=== PATIENT | male | born 1955 | race Caucasian/White ===

== ENCOUNTER 2020-05-15 13:01 | Inpatient (IN) | payer MEDICARE, OTHER ==
[~2020-05-15 13:01] MED LIST: Iopamidol-370 76% 500 ML 1 ML ONE
[2020-05-15] MEDS ORDERED: Morphine 4 MG/ML VIAL ONE (13:39)
[2020-05-15] MEDS ORDERED: Cefepime 2 GM VIAL ONE (13:39)
[2020-05-15] MEDS ORDERED: Ondansetron PF 4 MG/2 ML Vial ONE (13:39)
[2020-05-15] MEDS ORDERED: Acetaminophen 325 MG TAB ONE (13:39)
[2020-05-15 13:46] LABS: Hemoglobin 12.4 g/dL (14.0-18.0); Mean Corpuscular HGB CONC 32.8 g/dL (32.0-36.0); Mean Corpuscular Hemoglobin 29.4 pg (27.0-31.0); Mean Corpuscular Volume 89.5 fL (78.0-98.0); Mean Platelet Volume 7.9 fL (7.4-10.4); Platelet Count 436 thou/uL (130-400); RBC Distribution Width 12.7 % (11.5-14.5); Red Blood Cell (RBC) Count 4.23 mill/uL (4.70-6.10); White Blood Cell (WBC) Count 26.5 thou/uL (4.8-10.8)
[2020-05-15 14:00] LABS: Base Excess-Venous 1.5 mmol/L (-2.0 to 3.0); Bicarbonate (HCO3v) 26.5 mmol/L (22.0-28.0); CO2 Tension (PvCO2) 41.9 mmHg (40.0-50.0); Calcium, Ionized 1.02 mmol/L (1.15-1.33); Chloride 97 mmol/L (98-107); Hemoglobin - Calc 14.1 g/dL (14.0-18.0); Sodium 134 mmol/L (138-145); T. Carbon Dioxide 27.8 mmol/L (22.0-28.0); vO2 Saturation-calc 91.5 % (60.0-85.0)
[2020-05-15 14:07] LABS: ALT (SGPT) 14 U/L (8-55); AST (SGOT) 19 U/L (5-34); Albumin 3.6 g/dL (3.4-4.8); Alkaline Phosphatase 66 U/L (40-110); Anion Gap 16 mmol/L (10-20); BUN (Urea Nitrogen) 20 mg/dL (8.4-25.7); Bilirubin, Total 0.5 mg/dL (0.2-1.2); Calc. Creatinine Clearance 0 mL/min (70-130); Calcium 8.6 mg/dL (7.8-10.44); Carbon Dioxide 24 mmol/L (23-31); Chloride 98 mmol/L (98-107); Estimated GFR-MDRD 68; Globulin 3.9 g/dL (2.4-3.5); Glucose 125 mg/dL (80-115); Potassium 3.9 mmol/L (3.5-5.1); Protein, Total 7.5 g/dL (5.8-8.1); Sodium 134 mmol/L (136-145)
[2020-05-15 14:22] LABS: Band 36 % (5-11); Lymphocytes 6 % (21-51); MDiff Complete? YES; Monocytes 7 % (0-10); Neutrophil 50 % (42-75); Platelet Morphology Comment Appears Increased; Polychromasia SLIGHT = 2-3 cells (100X) (0-2/hpf); Reactive Lymphocytes 1 % (0-10); Target Cells SLIGHT = 2-5 cells (100X) (0-1/hpf)
--- NOTE | 2020-05-15 14:32 | ULT ---
EXAM: Left lower extremity venous Doppler US HISTORY: left lower extremity edema, erythema and pain FINDINGS: Grayscale, color-flow, Doppler evaluation, spectral analysis of the left lower extremity venous struc tures is performed with 2-D imaging. The left common femoral, superficial femoral, popliteal, posterior tibial, proximal greater saphenous and profunda femoral veins are imaged. There is normal luminal compressibility, flow, and augmentation the visualized deep venous structures of the left lower extremity. Several prominent lymph nodes are seen in the left groin. IMPRESSION: No evidence of a deep vein thrombosis in the left lower extremity.
--- NOTE | 2020-05-15 17:15 | CT ---
CT OF LEFT TIBIA AND FIBULA PERFORMED WITH INTRAVENOUS CONTRAST ENHANCEMENT: 05/15/20 HISTORY: Left lower leg swelling and redness and pain. Two chronic scab wounds to anterior ng. Increasing re dness. The patient is a diabetic. This examination extended from a level just below the knee to include the foot. There are cellulitis changes present. There is no air seen within the soft tissue and there does not appear to be any obvi ous muscle involvement. I do not see any signs that would suggest any type of compartment syndrome. Old posttraumatic changes to the interosseous ligament distally is seen. I see no evidence of osteomy elitis. Arthritic change of the ankle joint is present. IMPRESSION: Cellulitis changes. No abscess collection or air identified within the soft tissues. POS: ARIANNA
[2020-05-15 18:13] LABS: INR-International Normal Ratio 1.3; PTT 41.2 sec (22.9-36.1); Prothrombin Time 15.9 sec (12.0-14.7)
[2020-05-15 18:25] LABS: CRP (Inflammatory) 20.44 mg/dL (= or < 0.5); Magnesium 1.6 mg/dL (1.6-2.6)
--- NOTE | 2020-05-15 21:27 | PDOC.HHP ---
Hospitalist HPI - History of Present Illness Left leg swelling History of Present Illness: Patient is a 64-year-old male with diabetes mellitus type 2, hypertension and chronic left leg ulcer presented to the emergency room with worsening left leg swelling along with significant pain. Patient initially started having swelling in the left leg over the last 1 to 2 weeks. 3 days ago he noticed some erythema around the ulcers on his left ng that progressively got worse. Overnight his whole leg was red with tenderness and warmth. He had moderate to severe pain especially on ambulation. He also had some distal discomfort in the left groin. He felt generally weak and fatigue. No dysuria, hematuria, altered mentation, nausea, vomiting, cough, shortness of breath or wheezing reported. In the emergency room, his vital signs show temperature 98.3 with respiration of 16 pulse rate of 80 blood pressure of 122/71 with O2 saturation 95% on room air. He received vancomycin, cefepime with morphine and IV fluids in the emergency room. PAST MEDICAL HISTORY: Hypertension, diabetes mellitus type 2, hyperlipidemia, umbilical hernia, chronic left leg ulcers PAST SURGICAL HISTORY: Bilateral cataract surgery, splenectomy ALLERGIES: No known drug allergies SOCIAL HISTORY: Currently lives at home with his family. Smokes 1 pack a day for more than 30 years. Denies any alcohol or drug use. Makes his own decision with the help of his family. He is full code. FAMILY HISTORY: Negative for premature coronary artery disease Hospitalist ROS - Review of Systems Respiratory: denies: cough, dry, shortness of breath, hemoptysis, SOB with excertion, pleuritic pain, sputum, wheezing, other Cardiovascular: denies: chest pain, palpitations, orthopnea, paroxysmal noc. dyspnea, edema, light headedness, other All other systems reviewed; all pertinent +/- noted in HPI/Subj - Medication Medications: Amlodipine, lisinoprilHCTZ, metformin and Lipitor. Dosages to be verified - Exam General Appearance: ill appearing Eye: PERRL, anicteric sclera ENT: normocephalic atraumatic, no oropharyngeal lesions, moist mucosa Neck: supple, symmetric, no JVD, no thyromegaly Heart: RRR, no gallops, no rubs, normal peripheral pulses Respiratory: no wheezes, no rales, no ronchi, normal chest expansion Gastrointestinal: soft, normal bowel sounds, no guarding, no rigidity Gastrointestinal - other findings: Obese Extremities: no cyanosis, no clubbing, 2+ LE edema Extremities - other findings: Significant erythema with tenderness in left leg. Skin: normal turgor Skin - other findings: Chronic ulcer over the left ng Neurological: cranial nerve grossly intact, normal sensation to touch, no weakness, no focal deficits Musculoskeletal: normal tone, normal strength, no muscle wasting Psychiatric: normal affect, A&O x 3, oriented to person Hospitalist Results - Labs Result Diagrams: 05/15/20 13:36 05/15/20 13:36 Lab results: WBC 26.5 thou/uL (4.8-10.8) H 05/15/20 13:36 Hgb 12.4 g/dL (14.0-18.0) L 05/15/20 13:36 Hct 37.8 % (42.0-52.0) L 05/15/20 13:36 MCV 89.5 fL (78.0-98.0) 05/15/20 13:36 Plt Count 436 thou/uL (130-400) H 05/15/20 13:36 Band Neuts % (Manual) 36 % (5-11) H 05/15/20 13:36 VBG pCO2 41.9 mmHg (40.0-50.0) 05/15/20 13:41 VBG pO2 61.9 mmHg (35.0-45.0) H 05/15/20 13:41 Sodium 134 mmol/L (136-145) L 05/15/20 13:36 Potassium 3.9 mmol/L (3.5-5.1) 05/15/20 13:36 Chloride 98 mmol/L (98-107) 05/15/20 13:36 Carbon Dioxide 24 mmol/L (23-31) 05/15/20 13:36 BUN 20 mg/dL (8.4-25.7) 05/15/20 13:36 Creatinine 1.09 mg/dL (0.7-1.3) 05/15/20 13:36 Glucose 125 mg/dL (80-115) H 05/15/20 13:36 Lactic Acid 1.4 mmol/L (0.5-2.2) 05/15/20 13:36 Calcium 8.6 mg/dL (7.8-10.44) 05/15/20 13:36 Total Bilirubin 0.5 mg/dL (0.2-1.2) 05/15/20 13:36 AST 19 U/L (5-34) 05/15/20 13:36 ALT 14 U/L (8-55) 05/15/20 13:36 Alkaline Phosphatase 66 U/L (40-110) 05/15/20 13:36 C-Reactive Protein 20.44 mg/dL (= or < 0.5) H 05/15/20 17:56 Serum Total Protein 7.5 g/dL (5.8-8.1) 05/15/20 13:36 Albumin 3.6 g/dL (3.4-4.8) 05/15/20 13:36 - EKG Interpretation EKG: Sinus rhythmreviewed by me - Radiology Interpretation Other Status: image reviewed by me Additional Comment: EXAM: Left lower extremity venous Doppler US HISTORY: left lower extremity edema, erythema and pain FINDINGS: Grayscale, color-flow, Doppler evaluation, spectral analysis of the left lower extremity venous struc tures is performed with 2-D imaging. The left common femoral, superficial femoral, popliteal, posterior tibial, proximal greater saphenous and profunda femoral veins are imaged. There is normal luminal compressibility, flow, and augmentation the visualized deep venous structures of the left lower extremity. Several prominent lymph nodes are seen in the left groin. IMPRESSION: No evidence of a deep vein thrombosis in the left lower extremity. CT OF LEFT TIBIA AND FIBULA PERFORMED WITH INTRAVENOUS CONTRAST ENHANCEMENT: 05/15/20 HISTORY: Left lower leg swelling and redness and pain. Two chronic scab wounds to anterior ng. Increasing redness. The patient is a diabetic. This examination extended from a level just below the knee to include the foot. There are cellulitis changes present. There is no air seen within the soft tissue and there does not appear to be any obvious muscle involvement. I do not see any signs that would suggest any type of compartment syndrome. Old posttraumatic changes to the interosseous ligament distally is seen. I see no evidence of osteomyelitis. Arthritic change of the ankle joint is present. IMPRESSION: Cellulitis changes. No abscess collection or air identified within the soft tissues. Hospitalist H&P A/P - Plan Plan: Severe sepsis due to left leg cellulitis Diabetes mellitus type 2A1c 6.3 in 12/08 Hyponatremia/hypokalemia CKD stage II Hypertension Hyperlipidemia Ongoing tobacco dependence Chronic anemia suspected due to nutritional deficiency Thrombocytosissuspected to be reactive Chronic left leg ulcerations Plan: Medical admit. Left leg elevation. Vital signs per protocol. IV vancomycin with ceftriaxone. Monitor vancomycin level. Pain control. Wound care consult. Insulin sliding scale. Restart home antihypertensives. Recheck WBC in a.m. CRP was 20.4. Patient will require 3 to 4 days for stabilization. Replace magnesium. Tobacco cessation was emphasized
[2020-05-15] MEDS ORDERED: Ondansetron PF 4 MG/2 ML Vial IVP PRN (21:39)
[2020-05-15] MEDS ORDERED: Calcium Carbonate 500 MG ChewTAB PO PRN (21:39)
[2020-05-15] MEDS ORDERED: Nicotine 14 MG PATCH TD PRN (21:39)
[2020-05-15] MEDS ORDERED: Ondansetron ODT 4 MG TAB PO PRN (21:39)
[2020-05-15] MEDS ORDERED: Dextrose 5% in Water 1,000 ML IV PRN (21:43)
[2020-05-15] MEDS ORDERED: Dextrose 50% Abboject 50 ML SYRINGE SLOW IVP PRN (21:43)
[2020-05-15] MEDS ORDERED: Insulin Regular 300 UNITS/3 ML VIAL SC PRN ×2 (21:43)
[2020-05-15] MEDS ORDERED: Magnesium 2 GM/50 ML 2 GM in Premix Bag 1 BAG IVPB SCH (22:00)
[2020-05-15] MEDS: cefTRIAXone\\ROCEPHIN 2 GM in Sodium Chloride 0.9% 100 ML IVPB SCH (23:10)
[2020-05-15 23:24] VITALS: BMI 40.6
[2020-05-16] MEDS: Sodium Chloride 0.9% 1,000 ML IV SCH ×2 (00:16→11:23)
[2020-05-16 03:49] LABS: SARS-CoV-2 MS2 Positive; SARS-CoV-2 N Gene Negative; SARS-CoV-2 S Gene Negative; SARS-CoV-2 by NAA Not Detected (NotDetected); SARS-CoV-2 orf1ab Negative
[2020-05-16] MEDS: Acetaminophen 325 MG TAB PO PRN ×2 (05:01→23:27)
[2020-05-16 06:17] LABS: #Eosinphils 0.3 thou/uL (0.0-0.7); #Lymphocytes 2.7 thou/uL (1.20-3.40); #Monocytes 1.7 thou/uL (0.11-0.59); #Neutrophils 16.7 thou/uL (1.40-6.50); %Eosinophils 1.2 % (0.0-10.0); %Lymphocytes 12.4 % (21.0-51.0); %Monocytes 7.9 % (0.0-10.0); %Neutrophils 78.4 % (42.0-75.0); Hemoglobin 11.5 g/dL (14.0-18.0); Mean Corpuscular HGB CONC 32.2 g/dL (32.0-36.0); Mean Corpuscular Hemoglobin 29.3 pg (27.0-31.0); Mean Platelet Volume 7.4 fL (7.4-10.4); Platelet Count 393 thou/uL (130-400); RBC Distribution Width 12.7 % (11.5-14.5); Red Blood Cell (RBC) Count 3.93 mill/uL (4.70-6.10); White Blood Cell (WBC) Count 21.3 thou/uL (4.8-10.8)
[2020-05-16 06:43] LABS: ALT (SGPT) 13 U/L (8-55); AST (SGOT) 15 U/L (5-34); Albumin 3.3 g/dL (3.4-4.8); Alkaline Phosphatase 67 U/L (40-110); Anion Gap 13 mmol/L (10-20); BUN (Urea Nitrogen) 16 mg/dL (8.4-25.7); Bilirubin, Total 0.3 mg/dL (0.2-1.2); Calc. Creatinine Clearance 165 mL/min (70-130); Calcium 8.2 mg/dL (7.8-10.44); Carbon Dioxide 24 mmol/L (23-31); Chloride 102 mmol/L (98-107); Estimated GFR-MDRD 89; Globulin 3.5 g/dL (2.4-3.5); Glucose 102 mg/dL (80-115); Potassium 4.1 mmol/L (3.5-5.1); Protein, Total 6.8 g/dL (5.8-8.1); Sodium 135 mmol/L (136-145)
[2020-05-16] MEDS: Senokot S 8.6-50 MG TAB PO SCH ×2 (08:57→21:08)
[2020-05-16] MEDS: Lisinopril 10 MG TAB PO SCH (08:57)
[2020-05-16] MEDS: Enoxaparin Sodium 40 MG/0.4 ML SYRINGE SC SCH (08:58)
[2020-05-16] MEDS: Famotidine 20 MG TAB PO SCH ×2 (08:58→21:08)
[2020-05-16] MEDS: Amlodipine 5 MG TAB PO SCH ×2 (08:58→21:08)
[2020-05-16] MEDS: Triamcinolone 0.1% Cream 15 GM TUBE TOP SCH ×2 (09:00→21:09)
--- NOTE | 2020-05-16 12:59 | PDOC.HOSPP ---
- Subjective Encounter Date: 05/16/20 Encounter Time: 10:00 Subjective: Patient seen and examined for sepsis due to left leg cellulitis. Left lower extremity erythema and swelling improving. Denies any fever or chills. No chest pain, shortness of breath or palpitations reported. - Objective Vital Signs & Weight: Vital Signs (12 hours) Temp Pulse Resp BP Pulse Ox 05/16/20 07:55 98.3 F 83 16 116/72 96 05/16/20 04:00 98.0 F 87 18 122/72 94 L Weight Weight 299 lb 12.8 oz I&O: 05/15/20 05/16/20 05/17/20 06:59 06:59 06:59 Intake Total 770 Balance 770 Result Diagrams: 05/16/20 05:53 05/16/20 05:53 Additional Labs: Accuchecks 05/16/20 05/16/20 11:11 04:34 POC Glucose 115 H 99 Abnormal Lab Results - Last 48 hrs 05/15/20 13:36: Sodium 134 L, Globulin 3.9 H, Albumin/Globulin Ratio 0.9 L 05/15/20 13:36: WBC 26.5 H, RBC 4.23 L, Hgb 12.4 L, Hct 37.8 L, Plt Count 436 H, Band Neuts % (Manual) 36 H, Lymphocytes % (Manual) 6 L, Plt Morphology Comment Appears Increased H 05/15/20 13:41: POC Venous Hct 41.0 L, VBG pO2 61.9 H, POC VBG O2 Sat (Calc) 91.5 H, POC Venous Sodium 134 L, POC Venous Chloride 97 L, POC Venous Ion Calcium 1.02 L 05/15/20 17:56: PT 15.9 H, APTT 41.2 H 05/15/20 17:56: C-Reactive Protein 20.44 H 05/16/20 05:53: Sodium 135 L, Albumin 3.3 L, Albumin/Globulin Ratio 0.9 L 05/16/20 05:53: WBC 21.3 H, RBC 3.93 L, Hgb 11.5 L, Hct 35.7 L, Neutrophils % 78.4 H, Lymphocytes % 12.4 L, Neutrophils # 16.7 H, Monocytes # 1.7 H Microbiology - Entire Visit 05/15/20 13:36 Venous blood - Right Hand Blood Culture - Preliminary Specimen has been received and culture in progress. No Growth to date. 05/15/20 13:35 Venous blood - Left Hand Blood Culture - Preliminary Specimen has been received and culture in progress. No Growth to date. Radiology Reviewed by me: Yes (CT lower extremityno abscess or gas collection) Hospitalist ROS - Review of Systems Cardiovascular: denies: chest pain, palpitations, orthopnea, paroxysmal noc. dyspnea, edema, light headedness, other Gastrointestinal: denies: nausea, vomiting, abdominal pain, diarrhea, constipation, melena, hematochezia, other - Medication Medications: Active Medications Generic Name Dose Route Start Last Admin Trade Name Freq PRN Reason Stop Dose Admin Acetaminophen 650 mg 05/15/20 21:39 05/16/20 05:01 Acetaminophen 325 Mg Tab PO 650 mg Q4H PRN Administration Headache/Fever/Mild Pain (1-3) Amlodipine Besylate 5 mg 05/16/20 09:00 05/16/20 08:58 Amlodipine 5 Mg Tab PO 5 mg BID MARITA Administration Enoxaparin Sodium 40 mg 05/16/20 09:00 05/16/20 08:58 Enoxaparin Sodium 40 Mg/0.4 Ml Syringe SC 40 mg 0900 MARITA Administration Famotidine 20 mg 05/16/20 09:00 05/16/20 08:58 Famotidine 20 Mg Tab PO 20 mg BID MARITA Administration Vancomycin HCl 2 gm/ Sodium 500 mls @ 250 mls/hr 05/16/20 03:00 05/16/20 03:08 Chloride IVPB 500 mls 0300,1500 MARITA Administration Ceftriaxone Sodium 2 gm/ 100 mls @ 200 mls/hr 05/15/20 23:00 05/15/20 23:10 Sodium Chloride IVPB 100 mls Q24HR MARITA Administration Sodium Chloride 1,000 mls @ 75 mls/hr 05/15/20 21:45 05/16/20 11:23 Normal Saline 0.9% IV 05/17/20 00:24 Not Given .[id number] MARITA Lisinopril 10 mg 05/16/20 09:00 05/16/20 08:57 Lisinopril 10 Mg Tab PO 10 mg DAILY MARITA Administration Senna/Docusate Sodium 1 tab 05/16/20 09:00 05/16/20 08:57 Senokot S 8.6-50 Mg Tab PO 1 tab BID MARITA Administration - Exam General Appearance: NAD Heart: RRR, no gallops, no rubs, normal peripheral pulses Respiratory: no wheezes, no rales, no ronchi, normal chest expansion Gastrointestinal: soft, non-tender, non-distended, normal bowel sounds, no guarding, no rigidity Extremities: no cyanosis, no clubbing, 2+ LE edema Extremities - other findings: Improving left leg erythema Neurological: no new deficit Psychiatric: normal affect, A&O x 3 Hosp A/P - Plan DVT proph w/lovenox, DVT proph w/SCDs Severe sepsis due to left leg cellulitis Diabetes mellitus type 2A1c 6.3 in 12/08 Hyponatremia/hypokalemia/hypomagnesemia CKD stage II Hypertension Hyperlipidemia Ongoing tobacco dependence Chronic anemia suspected due to nutritional deficiency Thrombocytosissuspected to be reactive Chronic left leg ulcerations Plan: Continue vancomycin with ceftriaxone. Continue wound care. Continue to monitor vancomycin level. Advised patient to elevate left leg. Erythema and WBC count improving. Magnesium replaced. Discontinue IV fluid after this bag. Continue home dose of amlodipine, Lipitor and lisinopril. Continue wound care. Recheck CBC and BMP in a.m. Ambulate. DC in 1 to 2 days if stable. Continue to monitor
[2020-05-16] MEDS: Atorvastatin Calcium 20 MG TAB PO SCH (21:08)
[2020-05-16] MEDS: cefTRIAXone\\ROCEPHIN 2 GM in Sodium Chloride 0.9% 100 ML IVPB SCH (23:17)
[2020-05-17 02:24] LABS: Vancomycin, Trough 11.1 ug/mL
[2020-05-17] MEDS: Vancomycin HCl 1.75 GM in Sodium Chloride 0.9% 500 ML IVPB SCH ×3 (03:24→22:11)
[2020-05-17 06:12] LABS: #Eosinphils 0.4 thou/uL (0.0-0.7); #Lymphocytes 2.5 thou/uL (1.20-3.40); #Monocytes 1.4 thou/uL (0.11-0.59); #Neutrophils 13.9 thou/uL (1.40-6.50); %Basophils 0.2 % (0.0-1.0); %Eosinophils 2.2 % (0.0-10.0); %Lymphocytes 13.6 % (21.0-51.0); %Monocytes 7.9 % (0.0-10.0); %Neutrophils 76.1 % (42.0-75.0); Hemoglobin 12.8 g/dL (14.0-18.0); Mean Corpuscular HGB CONC 31.8 g/dL (32.0-36.0); Mean Corpuscular Hemoglobin 29.2 pg (27.0-31.0); Mean Corpuscular Volume 91.8 fL (78.0-98.0); Mean Platelet Volume 7.7 fL (7.4-10.4); Platelet Count 321 thou/uL (130-400); RBC Distribution Width 12.7 % (11.5-14.5); Red Blood Cell (RBC) Count 4.38 mill/uL (4.70-6.10); White Blood Cell (WBC) Count 18.3 thou/uL (4.8-10.8)
[2020-05-17 06:21] LABS: Anion Gap 13 mmol/L (10-20); BUN (Urea Nitrogen) 13 mg/dL (8.4-25.7); Calc. Creatinine Clearance 182 mL/min (70-130); Calcium 8.3 mg/dL (7.8-10.44); Carbon Dioxide 23 mmol/L (23-31); Chloride 104 mmol/L (98-107); Estimated GFR-MDRD Greater than 90; Glucose 102 mg/dL (80-115); Sodium 136 mmol/L (136-145)
[2020-05-17] MEDS: Lisinopril 10 MG TAB PO SCH (08:33)
[2020-05-17] MEDS: Famotidine 20 MG TAB PO SCH ×2 (08:33→22:12)
[2020-05-17] MEDS: Saccharomyces boulardii 250 MG CAP PO SCH (08:33)
[2020-05-17] MEDS: Enoxaparin Sodium 40 MG/0.4 ML SYRINGE SC SCH (08:34)
[2020-05-17] MEDS: Senokot S 8.6-50 MG TAB PO SCH ×2 (08:34→22:12)
[2020-05-17] MEDS: Amlodipine 5 MG TAB PO SCH ×2 (08:34→22:11)
[2020-05-17] MEDS: Triamcinolone 0.1% Cream 15 GM TUBE TOP SCH ×2 (08:35→22:13)
--- NOTE | 2020-05-17 16:55 | PDOC.HOSPP ---
- Subjective Encounter Date: 05/17/20 Encounter Time: 10:15 Subjective: Patient seen and examined for sepsis due to left lower extremity cellulitis. Left lower extremity cellulitis/erythema improving. Denies any nausea, chest pain, shortness of breath or fever. - Objective Vital Signs & Weight: Vital Signs (12 hours) Temp Pulse Resp BP BP Pulse Ox 05/17/20 08:34 76 118/75 05/17/20 08:33 118/75 05/17/20 07:44 98.6 F 76 16 118/75 92 L 05/17/20 07:34 94 L 05/17/20 05:30 94 L Weight Admit Weight 299 lb Weight 299 lb 12.8 oz I&O: 05/16/20 05/17/20 05/18/20 06:59 06:59 06:59 Intake Total 770 3710 Output Total 800 Balance 770 2910 Result Diagrams: 05/17/20 05:55 05/17/20 05:55 Additional Labs: Accuchecks 05/17/20 05/17/20 05/17/20 15:57 11:19 05:38 POC Glucose 109 H 109 H 98 Radiology Reviewed by me: Yes (CT lower extremitynegative for gas) Hospitalist ROS - Review of Systems Cardiovascular: denies: chest pain, palpitations, orthopnea, paroxysmal noc. dyspnea, edema, light headedness, other Gastrointestinal: denies: nausea, vomiting, abdominal pain, diarrhea, constipation, melena, hematochezia, other - Medication Medications: Active Medications Generic Name Dose Route Start Last Admin Trade Name Freq PRN Reason Stop Dose Admin Acetaminophen 650 mg 05/15/20 21:39 05/16/20 23:27 Acetaminophen 325 Mg Tab PO 650 mg Q4H PRN Administration Headache/Fever/Mild Pain (1-3) Amlodipine Besylate 5 mg 05/16/20 09:00 05/17/20 08:34 Amlodipine 5 Mg Tab PO 5 mg BID MARITA Administration Atorvastatin Calcium 20 mg 05/16/20 21:00 05/16/20 21:08 Atorvastatin Calcium 20 Mg Tab PO 20 mg HS MARITA Administration Enoxaparin Sodium 40 mg 05/16/20 09:00 05/17/20 08:34 Enoxaparin Sodium 40 Mg/0.4 Ml Syringe SC 40 mg 0900 MARITA Administration Famotidine 20 mg 05/16/20 09:00 05/17/20 08:33 Famotidine 20 Mg Tab PO 20 mg BID MARITA Administration Ceftriaxone Sodium 2 gm/ 100 mls @ 200 mls/hr 05/15/20 23:00 05/16/20 23:17 Sodium Chloride IVPB 100 mls Q24HR MARITA Administration Vancomycin HCl 1.75 gm/ Sodium 500 mls @ 250 mls/hr 05/17/20 04:00 05/17/20 12:38 Chloride IVPB 500 mls 0400,1200,2000 MARITA Administration Lisinopril 10 mg 05/16/20 09:00 05/17/20 08:33 Lisinopril 10 Mg Tab PO 10 mg DAILY MARITA Administration Saccharomyces Boulardii 250 mg 05/17/20 09:00 05/17/20 08:33 Saccharomyces Boulardii 250 Mg Cap PO 250 mg DAILY MARITA Administration Senna/Docusate Sodium 1 tab 05/16/20 09:00 05/17/20 08:34 Senokot S 8.6-50 Mg Tab PO 1 tab BID MARITA Administration Sodium Chloride 10 ml 05/15/20 21:39 05/16/20 23:19 Flush - Normal Saline 10 Ml Syringe IVF 10 ml PRN PRN Administration Saline Flush Triamcinolone Acetonide 0 gm 05/16/20 09:00 05/17/20 08:35 Triamcinolone 0.1% Cream 15 Gm Tube TOP 1 applic Q12HR MARITA Administration - Exam General Appearance: NAD Neck: supple, no JVD Heart: RRR, no gallops Respiratory: no wheezes, no ronchi Gastrointestinal: non-tender, normal bowel sounds, no rigidity Extremities: no cyanosis, 2+ LE edema (Improving left lower extremity erythema. Still has significant warmth) Neurological: no new deficit Hosp A/P - Plan DVT proph w/lovenox, DVT proph w/SCDs Severe sepsis due to left leg cellulitis Diabetes mellitus type 2A1c 6.3 in 12/08 Hyponatremia/hypokalemia/hypomagnesemia CKD stage II Hypertension Hyperlipidemia Ongoing tobacco dependence Chronic anemia suspected due to nutritional deficiency Thrombocytosissuspected to be reactive Chronic left leg ulcerations Plan: WBC count improved to 18,000 from 26,000. Still has left shift. Will benefit from IV vancomycin with ceftriaxone overnight. Will probably transition to oral antibiotics tomorrow. Blood cultures negative. Patient has been afebrile. Continue wound care. Recheck CBC in a.m. Probably DC home if patient is stable. Continue amlodipine, Lipitor and lisinopril.
[2020-05-17] MEDS: Atorvastatin Calcium 20 MG TAB PO SCH (22:11)
[2020-05-18] MEDS: cefTRIAXone\\ROCEPHIN 2 GM in Sodium Chloride 0.9% 100 ML IVPB SCH
[2020-05-18 04:53] LABS: #Basophils 0.1 thou/uL (0.0-0.2); #Eosinphils 0.6 thou/uL (0.0-0.7); #Lymphocytes 2.8 thou/uL (1.20-3.40); #Monocytes 1.5 thou/uL (0.11-0.59); #Neutrophils 12.2 thou/uL (1.40-6.50); %Basophils 0.4 % (0.0-1.0); %Eosinophils 3.7 % (0.0-10.0); %Lymphocytes 16.3 % (21.0-51.0); %Monocytes 8.7 % (0.0-10.0); %Neutrophils 70.8 % (42.0-75.0); Hemoglobin 13.1 g/dL (14.0-18.0); Mean Corpuscular HGB CONC 31.9 g/dL (32.0-36.0); Mean Corpuscular Hemoglobin 28.9 pg (27.0-31.0); Mean Corpuscular Volume 90.5 fL (78.0-98.0); Mean Platelet Volume 7.3 fL (7.4-10.4); Platelet Count 509 thou/uL (130-400); RBC Distribution Width 12.5 % (11.5-14.5); Red Blood Cell (RBC) Count 4.54 mill/uL (4.70-6.10); White Blood Cell (WBC) Count 17.2 thou/uL (4.8-10.8)
[2020-05-18 05:11] LABS: Vancomycin, Trough 16.1 ug/mL
[2020-05-18] MEDS: Vancomycin HCl 1.75 GM in Sodium Chloride 0.9% 500 ML IVPB SCH (06:28)
[2020-05-18 07:41] VITALS: TEMP 98.1
[2020-05-18] MEDS: Amlodipine 5 MG TAB PO SCH (08:45)
[2020-05-18] MEDS: Saccharomyces boulardii 250 MG CAP PO SCH (08:45)
[2020-05-18] MEDS: Enoxaparin Sodium 40 MG/0.4 ML SYRINGE SC SCH (08:45)
[2020-05-18] MEDS: Senokot S 8.6-50 MG TAB PO SCH (08:46)
[2020-05-18] MEDS: Triamcinolone 0.1% Cream 15 GM TUBE TOP SCH (08:46)
[2020-05-18] MEDS: Lisinopril 10 MG TAB PO SCH (08:46)
[2020-05-18] MEDS: Famotidine 20 MG TAB PO SCH (08:46)
[2020-05-18 08:47] VITALS: BP 138/68
[2020-05-18] MEDS ORDERED: cefTRIAXone\\ROCEPHIN 2 GM in Sodium Chloride 0.9% 100 ML IVPB SCH (10:45)
--- NOTE | 2020-05-18 12:34 | PDOC.DS.DS ---
Provider - Provider Date of Admission: 05/15/20 17:46 Date of Discharge: 05/18/20 Admitting Provider: Romel Esquivel MD Consultations: None Primary Care Physician: Lisa Higuera Course - Hospital Course Hospital Course: Patient is 64-year-old male with diabetes mellitus type 2, hypertension and chronic ulceration over the left leg presented to the emergency room with worsening left leg swelling along with erythema and pain. He was found to have WBC of 26.5 with 36% bandemia on admission. CT of the lower extremity was negative for abscess or air. It showed changes consistent with cellulitis. Please refer to the history and physical for further details The patient was admitted to the hospital with a diagnosis of left leg cellulitis with sepsis. He was started on vancomycin with ceftriaxone with good improvement. His WBC count has improved to 17.2 from 26.5. Left-sided shift has resolved. Swelling/erythema/warmth are improving. Patient is requesting to be discharged. I discussed with infectious disease Dr. Ch who recommended Keflex 500 mg every 6 hourly for 2 weeks followed by Pen-Vee K 250 mg twice daily for 6 months. Compression stockings was also advised. He was advised to follow-up with infectious disease and his PCP as scheduled. He understands above plan of care. Final diagnosis: Severe sepsis due to left leg cellulitis Diabetes mellitus type 2A1c 6.3 in 12/08 Hyponatremia/hypokalemia/hypomagnesemia CKD stage II Hypertension Hyperlipidemia Ongoing tobacco dependence Chronic anemia suspected due to nutritional deficiency Thrombocytosissuspected to be reactive Chronic left leg ulcerations Resuscitation Status: 05/15/20 21:39 Resuscitation Status Routine Resuscitation Status: FULL: Full Resuscitation - Labs Lab Results: 05/18/20 04:43 05/17/20 05:55 Abnormal Lab Results - Last 48 hrs 05/17/20 05:55: WBC 18.3 H, RBC 4.38 L, Hgb 12.8 L, Hct 40.2 L, MCHC 31.8 L, Neutrophils % 76.1 H, Lymphocytes % 13.6 L, Neutrophils # 13.9 H, Monocytes # 1.4 H 05/18/20 04:43: WBC 17.2 H, RBC 4.54 L, Hgb 13.1 L, Hct 41.1 L, MCHC 31.9 L, Plt Count 509 H, MPV 7.3 L, Lymphocytes % 16.3 L, Neutrophils # 12.2 H, Monocytes # 1.5 H Microbiology - Entire Visit 05/15/20 13:36 Venous blood - Right Hand Blood Culture - Preliminary NO GROWTH AT 48 HOURS 05/15/20 13:35 Venous blood - Left Hand Blood Culture - Preliminary NO GROWTH AT 48 HOURS - Physical Exam Vitals: Vital Signs (12 hours) Temp Pulse Resp BP BP Pulse Ox 05/18/20 08:46 138/68 05/18/20 08:45 71 05/18/20 08:00 95 05/18/20 07:41 98.1 F 71 20 129/74 95 05/18/20 04:36 97.5 F L 73 16 145/75 H 95 05/18/20 04:00 97.5 F L 73 16 145/75 H 95 Weight Admit Weight 299 lb Weight 299 lb 12.8 oz Physical Exam: The patient was seen and examined on the day of discharge. Plan - Discharge Medications Prescriptions: Saccharomyces boulardii [Florastor] 250 mg PO DAILY #30 cap Cephalexin [Keflex] 500 mg PO Q6H #56 cap Home Medications: Medication Instructions Recorded Confirmed Type Amlodipine [Norvasc] 10 mg PO DAILY 05/15/20 05/15/20 History Atorvastatin Calcium [Lipitor] 20 mg PO DAILY 05/15/20 05/15/20 History Lisinopril/Hydrochlorothiazide 1 tab PO DAILY 05/15/20 05/15/20 History [Lisinopril-Hctz 10-12.5 mg Tab] Mecobalamin [B12 Active] 1,500 mcg PO DAILY 05/15/20 05/15/20 History metFORMIN [Glucophage] 500 mg PO BID 05/15/20 05/15/20 History Cephalexin [Keflex] 500 mg PO Q6H #56 cap 05/18/20 Rx Saccharomyces boulardii [Florastor] 250 mg PO DAILY #30 cap 05/18/20 Rx Allergies: No Known Allergies Allergy (Verified 05/15/20 23:16) - Discharge Instructions Discharge Instructions:: Compression stockings Outpatient wound care Leg elevation at night Call MD if Leg swelling/redness worsens Pen VK 250 mg twice daily x 6 months after completion of Keflex (per Dr Ch) - PCP to sent prescription - Follow up Plan Referrals: Lisa Higuera NP [Primary Care Provider] - 7 Days Maldonado Ch MD [Active] - 14 Days Disposition: HOME Quality - Care Measures CORE MEASURES:: N/A
== END 2020-05-18 13:03 | disposition home or self-care (01) | DRG 872 ==
LOC: ERS 13:01 → T4-A 17:46
PROVIDERS: ADMIT Internal Medicine; ATTEND Internal Medicine
DX: A41.9 Sepsis, unspecified organism (principal); L03.116 Cellulitis of left lower limb; E87.1 Hypo-osmolality and hyponatremia; L97.929 Non-pressure chronic ulcer of unspecified part of left lower leg with unspecified severity; R65.20 Severe sepsis without septic shock; E11.22 Type 2 diabetes mellitus with diabetic chronic kidney disease; N18.2 Chronic kidney disease, stage 2 (mild); E87.6 Hypokalemia; E83.42 Hypomagnesemia; I12.9 Hypertensive chronic kidney disease with stage 1 through stage 4 chronic kidney disease, or unspecified chronic kidney disease; E78.5 Hyperlipidemia, unspecified; F17.210 Nicotine dependence, cigarettes, uncomplicated; D53.9 Nutritional anemia, unspecified; D69.6 Thrombocytopenia, unspecified; Z20.828 Contact with and (suspected) exposure to other viral communicable diseases; Z98.42 Cataract extraction status, left eye; Z98.41 Cataract extraction status, right eye; Z79.899 Other long term (current) drug therapy; Z79.84 Long term (current) use of oral hypoglycemic drugs
CPT/HCPCS: 36415; 36416; 80048; 80053; 80202; 82330; 82803; 83605; 83735; 85025; 85610; 85730; 86140; 87040; 87635; 93005; 96365; 96366; 96367; 96375; J0692; J0696; J1650; J2270; J2405; J3370; J3475; J3490; J7030; U0003

== ENCOUNTER 2021-05-14 21:45 | Inpatient (IN) | payer MEDICARE ==
[2021-05-14 22:46] LABS: Hemoglobin 12.7 g/dL (14.0-18.0); Mean Corpuscular HGB CONC 33.1 g/dL (32.0-36.0); Mean Corpuscular Hemoglobin 29.2 pg (27.0-31.0); Mean Corpuscular Volume 88.1 fL (78.0-98.0); Mean Platelet Volume 7.7 fL (7.4-10.4); Platelet Count 383 thou/uL (130-400); RBC Distribution Width 13.8 % (11.5-14.5); Red Blood Cell (RBC) Count 4.36 mill/uL (4.70-6.10)
[2021-05-14 22:54] LABS: INR-International Normal Ratio 1.3; Prothrombin Time 16.6 sec (12.0-14.7)
[2021-05-14 23:01] LABS: Band 27 % (5-11); Lymphocytes 8 % (21-51); MDiff Complete? YES; Neutrophil 65 % (42-75)
[2021-05-14 23:04] LABS: ALT (SGPT) 17 U/L (8-55); AST (SGOT) 25 U/L (5-34); Albumin 3.9 g/dL (3.4-4.8); Alkaline Phosphatase 71 U/L (40-110); Anion Gap 19 mmol/L (10-20); BUN (Urea Nitrogen) 44 mg/dL (8.4-25.7); Bilirubin, Total 0.7 mg/dL (0.2-1.2); Calc. Creatinine Clearance 0 mL/min (70-130); Calcium 9.5 mg/dL (7.8-10.44); Carbon Dioxide 21 mmol/L (23-31); Chloride 95 mmol/L (98-107); Globulin 5.1 g/dL (2.4-3.5); Glucose 117 mg/dL (80-115); Potassium 5.2 mmol/L (3.5-5.1); Sodium 130 mmol/L (136-145)
[2021-05-14] MEDS ORDERED: Piperacillin/Tazobactam 4.5 GM in Sodium Chloride 0.9% 100 ML IVPB SCH (23:15)
[2021-05-14] MEDS ORDERED: Vancomycin 1 GM/200 ML BAG ONE (23:20)
[2021-05-15] MEDS ORDERED: Ondansetron PF 4 MG/2 ML Vial IVP PRN (00:11)
[2021-05-15] MEDS ORDERED: Ondansetron ODT 4 MG TAB PO PRN (00:11)
[2021-05-15] MEDS ORDERED: Sodium Chloride 0.9% 1,000 ML IV SCH ×2 (00:30→05:45)
[2021-05-15 00:36] LABS: Bacteria/HPF None Seen HPF (None Seen); Bilirubin Negative (Negative); Blood, Urine Trace (Negative); Clarity Turbid (Clear); Glucose, Urine (Dipstick) Normal (Negative); Ketone, Urine Negative (Negative); Leukocyte Negative Leu/uL (Negative); Nitrite Negative (Negative); Protein, Urine (Dipstick) 20 mg/dL (Neg-Trace); Squamous Epithelial None Seen HPF (0-3); Transitional Epithelial 0-3 HPF (None Seen); Urobilinogen Normal mg/dL (Less than 2); WBC/HPF 0-3 HPF (0-3)
[2021-05-15] MEDS ORDERED: HumaLOG 300 UNITS/3 ML VIAL SC PRN ×2 (01:26)
[2021-05-15] MEDS ORDERED: Dextrose 5% in Water 1,000 ML IV PRN (01:26)
[2021-05-15] MEDS ORDERED: Dextrose 50% Abboject 50 ML SYRINGE SLOW IVP PRN (01:26)
[2021-05-15] MEDS ORDERED: Vancomycin HCl 750 MG in Sodium Chloride 0.9% 250 ML 250 ML IVPB SCH (02:30)
[2021-05-15] MEDS: Acetaminophen 650 MG Suppository PR PRN ×2 (03:25→09:04)
[2021-05-15] MEDS ORDERED: Piperacillin/Tazobactam 3.375 GM in Sodium Chloride 0.9% 100 ML IVPB SCH (04:00)
[2021-05-15 05:33] LABS: Band 25 % (5-11); Hemoglobin 10.7 g/dL (14.0-18.0); Lymphocytes 4 % (21-51); MDiff Complete? YES; Mean Corpuscular Hemoglobin 28.4 pg (27.0-31.0); Mean Corpuscular Volume 88.9 fL (78.0-98.0); Mean Platelet Volume 7.5 fL (7.4-10.4); Monocytes 2 % (0-10); Neutrophil 69 % (42-75); Platelet Count 346 thou/uL (130-400); RBC Distribution Width 13.9 % (11.5-14.5); Red Blood Cell (RBC) Count 3.75 mill/uL (4.70-6.10); White Blood Cell (WBC) Count 25.4 thou/uL (4.8-10.8)
[2021-05-15 05:47] LABS: Anion Gap 12 mmol/L (10-20); BUN (Urea Nitrogen) 43 mg/dL (8.4-25.7); Calc. Creatinine Clearance 95 mL/min (70-130); Calcium 8.5 mg/dL (7.8-10.44); Carbon Dioxide 23 mmol/L (23-31); Chloride 101 mmol/L (98-107); Glucose 126 mg/dL (80-115); Sodium 132 mmol/L (136-145)
[2021-05-15] MEDS ORDERED: Vancomycin HCl 1.5 GM in Sodium Chloride 0.9% 250 ML 300 ML IVPB SCH (09:00)
[2021-05-15] MEDS: Cefepime 2 GM in Sodium Chloride 0.9% 100 ML IVPB SCH ×2 (09:04→20:36)
[2021-05-15] MEDS: Sodium Chloride 0.9% 1,000 ML IV SCH ×2 (09:04→17:58)
[2021-05-15] MEDS: Enoxaparin Sodium 40 MG/0.4 ML SYRINGE SC SCH (09:05)
[2021-05-15] MEDS: Acetaminophen 325 MG TAB PO PRN (20:41)
[2021-05-15 21:11] LABS: SARS-CoV-2 PCR by NAA Not Detected (NotDetected)
[2021-05-16] MEDS ORDERED: VANCOMYCIN 1.75 GM/350 ML BAG 1.75 GM in Premix Bag 1 BAG IVPB SCH (02:00)
[2021-05-16] MEDS: Sodium Chloride 0.9% 1,000 ML IV SCH (06:20)
[2021-05-16] MEDS: Acetaminophen 325 MG TAB PO PRN (06:24)
[2021-05-16 07:13] LABS: Hemoglobin 11.1 g/dL (14.0-18.0); Mean Corpuscular HGB CONC 32.5 g/dL (32.0-36.0); Mean Corpuscular Hemoglobin 29.4 pg (27.0-31.0); Mean Corpuscular Volume 90.4 fL (78.0-98.0); Mean Platelet Volume 7.6 fL (7.4-10.4); Platelet Count 332 thou/uL (130-400); RBC Distribution Width 14.1 % (11.5-14.5); Red Blood Cell (RBC) Count 3.76 mill/uL (4.70-6.10); White Blood Cell (WBC) Count 25.6 thou/uL (4.8-10.8)
[2021-05-16 07:19] LABS: Anion Gap 12 mmol/L (10-20); BUN (Urea Nitrogen) 23 mg/dL (8.4-25.7); Calc. Creatinine Clearance 136 mL/min (70-130); Calcium 8.4 mg/dL (7.8-10.44); Carbon Dioxide 21 mmol/L (23-31); Chloride 103 mmol/L (98-107); Glucose 120 mg/dL (80-115); Potassium 4.8 mmol/L (3.5-5.1); Sodium 131 mmol/L (136-145)
[2021-05-16 07:55] LABS: Band 10 % (5-11); Lymphocytes 11 % (21-51); MDiff Complete? YES; Monocytes 3 % (0-10); Neutrophil 75 % (42-75); Platelet Morphology Comment Appears Adequate
[2021-05-16] MEDS: Enoxaparin Sodium 40 MG/0.4 ML SYRINGE SC SCH (10:00)
[2021-05-16] MEDS: Cefepime 2 GM in Sodium Chloride 0.9% 100 ML IVPB SCH (10:00)
[2021-05-16] MEDS ORDERED: Promethazine HCl 12.5 MG in Sodium Chloride 0.9% 50 ML IVPB PRN (13:12)
[2021-05-16] MEDS ORDERED: VANCOMYCIN 1.25 GM/250 ML BAG 1.25 GM in Premix Bag 1 BAG IVPB SCH (14:00)
[2021-05-16] MEDS: HYDROcodone/Acetaminophen 5/325 mg Tablet PO PRN (15:54)
[2021-05-16] MEDS ORDERED: Cefepime 2 GM in Sodium Chloride 0.9% 100 ML IVPB SCH (17:00)
[2021-05-16] MEDS ORDERED: ceFAZolin Sodium/D5W 2 GM in Premix Bag 1 BAG IVPB SCH (22:00)
[2021-05-16] MEDS: Atorvastatin Calcium 20 MG TAB PO SCH (22:39)
[2021-05-16] MEDS: CEFAZOLIN 2 GM, Admixture Fee 1 EACH in Sodium Chloride 0.9% 100 ML IVPB SCH (23:05)
[2021-05-17] MEDS ORDERED: Vancomycin 1.5 GRAM/300 ML BAG 1.5 GM in Premix Bag 1 BAG IVPB SCH (02:00)
[2021-05-17] MEDS: CEFAZOLIN 2 GM, Admixture Fee 1 EACH in Sodium Chloride 0.9% 100 ML IVPB SCH ×3 (07:22→22:28)
[2021-05-17] MEDS: Enoxaparin Sodium 40 MG/0.4 ML SYRINGE SC SCH (09:13)
[2021-05-17] MEDS: Furosemide 40 MG TAB PO SCH (09:13)
[2021-05-17 10:04] LABS: Hemoglobin 11.1 g/dL (14.0-18.0); Mean Corpuscular HGB CONC 31.9 g/dL (32.0-36.0); Mean Corpuscular Volume 90.8 fL (78.0-98.0); Mean Platelet Volume 8.2 fL (7.4-10.4); Platelet Count 367 thou/uL (130-400); RBC Distribution Width 14.2 % (11.5-14.5); Red Blood Cell (RBC) Count 3.82 mill/uL (4.70-6.10)
[2021-05-17] MEDS: Acetaminophen 325 MG TAB PO PRN ×2 (10:13→18:23)
[2021-05-17 10:14] LABS: Anion Gap 11 mmol/L (10-20); BUN (Urea Nitrogen) 19 mg/dL (8.4-25.7); Calc. Creatinine Clearance 163 mL/min (70-130); Carbon Dioxide 24 mmol/L (23-31); Chloride 102 mmol/L (98-107); Glucose 135 mg/dL (80-115); Potassium 4.4 mmol/L (3.5-5.1); Sodium 133 mmol/L (136-145)
[2021-05-17 10:28] LABS: Band 6 % (5-11); Lymphocytes 6 % (21-51); MDiff Complete? YES; Monocytes 12 % (0-10); Neutrophil 76 % (42-75); Platelet Morphology Comment Appears Adequate; Vacuoles SLIGHT
[2021-05-17] MEDS: Famotidine 20 MG TAB PO SCH (13:54)
[2021-05-17] MEDS: HYDROcodone/Acetaminophen 5/325 mg Tablet PO PRN ×2 (13:54→22:28)
[2021-05-17] MEDS ORDERED: Furosemide 20 MG/2 ML VIAL SLOW IVP SCH (15:45)
[2021-05-17] MEDS: Atorvastatin Calcium 20 MG TAB PO SCH (22:32)
[2021-05-18] MEDS: CEFAZOLIN 2 GM, Admixture Fee 1 EACH in Sodium Chloride 0.9% 100 ML IVPB SCH ×3 (06:31→21:11)
[2021-05-18] MEDS: Furosemide 40 MG TAB PO SCH (08:40)
[2021-05-18] MEDS: Enoxaparin Sodium 40 MG/0.4 ML SYRINGE SC SCH (08:40)
[2021-05-18] MEDS: Famotidine 20 MG TAB PO SCH (08:40)
[2021-05-18] MEDS: Acetaminophen 325 MG TAB PO PRN ×2 (08:41→16:05)
[2021-05-18 18:42] LABS: Hemoglobin 10.7 g/dL (14.0-18.0); Mean Corpuscular HGB CONC 31.9 g/dL (32.0-36.0); Mean Corpuscular Hemoglobin 28.9 pg (27.0-31.0); Mean Corpuscular Volume 90.6 fL (78.0-98.0); Mean Platelet Volume 7.5 fL (7.4-10.4); Platelet Count 445 thou/uL (130-400); RBC Distribution Width 14.1 % (11.5-14.5); White Blood Cell (WBC) Count 25.3 thou/uL (4.8-10.8)
[2021-05-18 18:59] LABS: Anion Gap 13 mmol/L (10-20); BUN (Urea Nitrogen) 15 mg/dL (8.4-25.7); Calc. Creatinine Clearance 181 mL/min (70-130); Calcium 9.1 mg/dL (7.8-10.44); Carbon Dioxide 28 mmol/L (23-31); Chloride 100 mmol/L (98-107); Glucose 120 mg/dL (80-115); Sodium 137 mmol/L (136-145)
[2021-05-18 19:06] LABS: Band 11 % (5-11); Eosinophils 5 % (0-10); Lymphocytes 5 % (21-51); MDiff Complete? YES; Monocytes 7 % (0-10); Neutrophil 71 % (42-75); Platelet Morphology Comment Appears Increased; Polychromasia SLIGHT = 2-3 cells (100X) (0-2/hpf); Reactive Lymphocytes 1 % (0-10)
[2021-05-18] MEDS: Atorvastatin Calcium 20 MG TAB PO SCH (21:11)
[2021-05-18] MEDS: HYDROcodone/Acetaminophen 5/325 mg Tablet PO PRN (21:16)
[2021-05-19] MEDS: CEFAZOLIN 2 GM, Admixture Fee 1 EACH in Sodium Chloride 0.9% 100 ML IVPB SCH ×3 (08:02→22:27)
[2021-05-19] MEDS: Enoxaparin Sodium 40 MG/0.4 ML SYRINGE SC SCH (08:03)
[2021-05-19] MEDS: Furosemide 40 MG TAB PO SCH (08:03)
[2021-05-19] MEDS: Famotidine 20 MG TAB PO SCH (08:03)
[2021-05-19] MEDS: HYDROcodone/Acetaminophen 5/325 mg Tablet PO PRN ×2 (08:12→20:53)
[2021-05-19] MEDS: Atorvastatin Calcium 20 MG TAB PO SCH (20:53)
[2021-05-20] MEDS: CEFAZOLIN 2 GM, Admixture Fee 1 EACH in Sodium Chloride 0.9% 100 ML IVPB SCH (06:04)
[2021-05-20] MEDS: Famotidine 20 MG TAB PO SCH (08:07)
[2021-05-20] MEDS: Furosemide 40 MG TAB PO SCH (08:07)
[2021-05-20] MEDS: HYDROcodone/Acetaminophen 5/325 mg Tablet PO PRN ×3 (08:07→21:07)
[2021-05-20] MEDS: Enoxaparin Sodium 40 MG/0.4 ML SYRINGE SC SCH (08:08)
[2021-05-20] MEDS ORDERED: CEFAZOLIN 2 GM in Premix Bag 1 BAG IVPB SCH (14:00)
[2021-05-20] MEDS: Cephalexin 250 MG CAP PO SCH (18:21)
[2021-05-20] MEDS: Acetaminophen 325 MG TAB PO PRN (21:08)
[2021-05-20] MEDS: Atorvastatin Calcium 20 MG TAB PO SCH (21:08)
[2021-05-21] MEDS: Cephalexin 250 MG CAP PO SCH ×5 (00:09→23:14)
[2021-05-21] MEDS: HYDROcodone/Acetaminophen 5/325 mg Tablet PO PRN ×5 (00:09→21:52)
[2021-05-21 06:57] LABS: Mean Corpuscular HGB CONC 30.6 g/dL (32.0-36.0); Mean Corpuscular Hemoglobin 28.1 pg (27.0-31.0); Mean Corpuscular Volume 91.9 fL (78.0-98.0); Mean Platelet Volume 6.9 fL (7.4-10.4); Platelet Count 617 thou/uL (130-400); RBC Distribution Width 14.1 % (11.5-14.5); White Blood Cell (WBC) Count 25.6 thou/uL (4.8-10.8)
[2021-05-21 07:10] LABS: Anion Gap 14 mmol/L (10-20); BUN (Urea Nitrogen) 11 mg/dL (8.4-25.7); Calc. Creatinine Clearance 186 mL/min (70-130); Calcium 9.2 mg/dL (7.8-10.44); Carbon Dioxide 31 mmol/L (23-31); Chloride 98 mmol/L (98-107); Glucose 113 mg/dL (80-115); Sodium 139 mmol/L (136-145)
[2021-05-21] MEDS: Furosemide 40 MG TAB PO SCH (08:33)
[2021-05-21] MEDS: Famotidine 20 MG TAB PO SCH (08:33)
[2021-05-21] MEDS: Enoxaparin Sodium 40 MG/0.4 ML SYRINGE SC SCH (08:33)
[2021-05-21 08:42] LABS: Band 25 % (5-11); Lymphocytes 11 % (21-51); MDiff Complete? YES; Metamyelocyte 1 % (0-0); Monocytes 6 % (0-10); Neutrophil 56 % (42-75); Platelet Morphology Comment Appears Increased; Polychromasia SLIGHT = 2-3 cells (100X) (0-2/hpf); Reactive Lymphocytes 1 % (0-10)
[2021-05-21] MEDS ORDERED: Iopamidol-370 76% 500 ML 1 ML ONE (09:39)
[2021-05-21] MEDS: Atorvastatin Calcium 20 MG TAB PO SCH (21:23)
[2021-05-21] MEDS: Acetaminophen 325 MG TAB PO PRN (21:52)
[2021-05-22] MEDS: HYDROcodone/Acetaminophen 5/325 mg Tablet PO PRN ×5 (02:02→21:32)
[2021-05-22] MEDS: Cephalexin 250 MG CAP PO SCH ×4 (05:48→23:59)
[2021-05-22 07:53] LABS: Hemoglobin 10.6 g/dL (14.0-18.0); Mean Corpuscular HGB CONC 31.1 g/dL (32.0-36.0); Mean Corpuscular Hemoglobin 28.8 pg (27.0-31.0); Mean Corpuscular Volume 92.6 fL (78.0-98.0); Mean Platelet Volume 6.8 fL (7.4-10.4); Platelet Count 697 thou/uL (130-400); RBC Distribution Width 13.9 % (11.5-14.5); Red Blood Cell (RBC) Count 3.68 mill/uL (4.70-6.10); White Blood Cell (WBC) Count 21.5 thou/uL (4.8-10.8)
[2021-05-22 08:00] LABS: Anion Gap 9 mmol/L (10-20); BUN (Urea Nitrogen) 10 mg/dL (8.4-25.7); Calc. Creatinine Clearance 196 mL/min (70-130); Calcium 9.1 mg/dL (7.8-10.44); Carbon Dioxide 36 mmol/L (23-31); Chloride 96 mmol/L (98-107); Glucose 121 mg/dL (80-115); Potassium 4.3 mmol/L (3.5-5.1); Sodium 137 mmol/L (136-145)
[2021-05-22] MEDS: Furosemide 40 MG TAB PO SCH (08:13)
[2021-05-22] MEDS: Enoxaparin Sodium 40 MG/0.4 ML SYRINGE SC SCH (08:13)
[2021-05-22 08:32] VITALS: BMI 43.9
[2021-05-22 09:02] LABS: Band 13 % (5-11); Eosinophils 3 % (0-10); Lymphocytes 13 % (21-51); MDiff Complete? YES; Metamyelocyte 3 % (0-0); Monocytes 2 % (0-10); Neutrophil 64 % (42-75); Platelet Morphology Comment Appears Increased; Polychromasia SLIGHT = 2-3 cells (100X) (0-2/hpf); Reactive Lymphocytes 2 % (0-10)
[2021-05-22] MEDS: Famotidine 20 MG TAB PO SCH (11:30)
[2021-05-22] MEDS: Atorvastatin Calcium 20 MG TAB PO SCH (20:43)
[2021-05-23] MEDS: HYDROcodone/Acetaminophen 5/325 mg Tablet PO PRN (05:53)
[2021-05-23] MEDS: Cephalexin 250 MG CAP PO SCH ×2 (05:55→11:17)
[2021-05-23 06:49] LABS: #Eosinphils 0.6 thou/uL (0.0-0.7); #Monocytes 1.2 thou/uL (0.11-0.59); #Neutrophils 14.4 thou/uL (1.40-6.50); %Basophils 0.1 % (0.0-1.0); %Lymphocytes 15.7 % (21.0-51.0); %Monocytes 6.3 % (0.0-10.0); Hemoglobin 10.4 g/dL (14.0-18.0); Mean Corpuscular HGB CONC 30.7 g/dL (32.0-36.0); Mean Corpuscular Hemoglobin 28.2 pg (27.0-31.0); Mean Corpuscular Volume 91.9 fL (78.0-98.0); Mean Platelet Volume 6.8 fL (7.4-10.4); Platelet Count 714 thou/uL (130-400); RBC Distribution Width 13.7 % (11.5-14.5); Red Blood Cell (RBC) Count 3.68 mill/uL (4.70-6.10); White Blood Cell (WBC) Count 19.2 thou/uL (4.8-10.8)
[2021-05-23 07:10] LABS: Anion Gap 12 mmol/L (10-20); BUN (Urea Nitrogen) 12 mg/dL (8.4-25.7); Calc. Creatinine Clearance 181 mL/min (70-130); Calcium 9.1 mg/dL (7.8-10.44); Carbon Dioxide 34 mmol/L (23-31); Chloride 95 mmol/L (98-107); Glucose 130 mg/dL (80-115); Potassium 4.3 mmol/L (3.5-5.1); Sodium 137 mmol/L (136-145)
[2021-05-23] MEDS: Furosemide 40 MG TAB PO SCH (08:05)
[2021-05-23] MEDS: Enoxaparin Sodium 40 MG/0.4 ML SYRINGE SC SCH (08:05)
[2021-05-23] MEDS: Famotidine 20 MG TAB PO SCH (08:05)
[2021-05-23] MEDS ORDERED: Famotidine 20 MG TAB PO SCH (09:00)
[2021-05-23 12:10] LABS: SARS-CoV-2 PCR by NAA Not Detected (NotDetected)
[2021-05-23 13:14] VITALS: BP 121/76; TEMP 98.5
== END 2021-05-23 13:37 | disposition home health service (06) | DRG 871 ==
LOC: ERS 21:45 → 2NO 23:43 → IMCU/EMU 05-15 10:23 → T4-A 05-16 12:40
PROVIDERS: ADMIT Student in an Organized Health Care Education/Training Program; ATTEND Internal Medicine Geriatric Medicine
DX: A41.9 Sepsis, unspecified organism (principal); G93.41 Metabolic encephalopathy; L03.116 Cellulitis of left lower limb; N17.9 Acute kidney failure, unspecified; M16.11 Unilateral primary osteoarthritis, right hip; G47.30 Sleep apnea, unspecified; Z20.822 Contact with and (suspected) exposure to COVID-19; E11.9 Type 2 diabetes mellitus without complications; E78.5 Hyperlipidemia, unspecified; E78.00 Pure hypercholesterolemia, unspecified; I10 Essential (primary) hypertension; F17.210 Nicotine dependence, cigarettes, uncomplicated; E66.01 Morbid (severe) obesity due to excess calories; Z68.41 Body mass index [BMI] 40.0-44.9, adult; Z79.84 Long term (current) use of oral hypoglycemic drugs; Z79.899 Other long term (current) drug therapy; Z90.81 Acquired absence of spleen
CPT/HCPCS: 36415; 36416; 70450; 71045; 80048; 80053; 81003; 81015; 83605; 85025; 85610; 85652; 85730; 86140; 87040; 87086; 93005; 93970; 94660; 94760; 96365; 96375; J0690; J0692; J1650; J1815; J1940; J2405; J2543; J2550; J3370; J3490; J7050; Q9967; U0003; U0005

== ENCOUNTER 2022-10-05 19:29 | Emergency (ER) | payer MEDICARE ==
[2022-10-05 20:34] LABS: #Basophils 0.1 thou/uL (0.0-0.2); #Eosinphils 0.5 thou/uL (0.0-0.7); #Lymphocytes 2.9 thou/uL (1.20-3.40); #Neutrophils 8.4 thou/uL (1.40-6.50); %Basophils 0.5 % (0.0-1.0); %Eosinophils 3.8 % (0.0-10.0); %Lymphocytes 22.5 % (21.0-51.0); %Monocytes 7.5 % (0.0-10.0); %Neutrophils 65.7 % (42.0-75.0); Mean Corpuscular Hemoglobin 29.7 pg (27.0-31.0); Mean Platelet Volume 7.9 fL (7.4-10.4); Platelet Count 464 10x3/uL (130-400); RBC Distribution Width 12.7 % (11.5-14.5); Red Blood Cell (RBC) Count 4.03 mill/uL (4.70-6.10); White Blood Cell (WBC) Count 12.7 10x3/uL (4.8-10.8)
[2022-10-05 20:55] LABS: ALT (SGPT) 10 U/L (8-55); AST (SGOT) 14 U/L (5-34); Albumin 3.8 g/dL (3.4-4.8); Alkaline Phosphatase 110 U/L (40-110); Anion Gap 12 mmol/L (10-20); BUN (Urea Nitrogen) 32 mg/dL (8.4-25.7); Bilirubin, Total 0.3 mg/dL (0.2-1.2); Calc. Creatinine Clearance 0 mL/min (70-130); Carbon Dioxide 26 mmol/L (23-31); Chloride 104 mmol/L (98-107); Estimated GFR 53; Globulin 4.3 g/dL (2.4-3.5); Glucose 120 mg/dL (80-115); Potassium 4.3 mmol/L (3.5-5.1); Protein, Total 8.1 g/dL (5.8-8.1); Sodium 138 mmol/L (136-145)
== END 2022-10-06 | disposition left against medical advice (07) ==
LOC: ERS 19:29
DX: Z53.29 Procedure and treatment not carried out because of patient's decision for other reasons (principal)
CPT/HCPCS: 36415; 80053; 83605; 85025; 87040

== ENCOUNTER 2022-10-06 19:07 | Inpatient (IN) | payer MEDICARE ==
[2022-10-06] MEDS ORDERED: cefTRIAXone (ROCEPHIN) 2 GM VIAL ONE (21:09)
[2022-10-06] MEDS ORDERED: Vancomycin HCl 2.5 GM in Sodium Chloride 0.9% 500 ML IVPB SCH (21:45)
[2022-10-06 22:29] LABS: #Basophils 0.1 thou/uL (0.0-0.2); #Eosinphils 0.6 thou/uL (0.0-0.7); #Lymphocytes 3.9 thou/uL (1.20-3.40); #Monocytes 1.2 thou/uL (0.11-0.59); #Neutrophils 7.4 thou/uL (1.40-6.50); %Basophils 0.6 % (0.0-1.0); %Eosinophils 4.8 % (0.0-10.0); %Lymphocytes 29.4 % (21.0-51.0); %Monocytes 8.9 % (0.0-10.0); %Neutrophils 56.3 % (42.0-75.0); Hemoglobin 11.4 g/dL (14.0-18.0); Mean Corpuscular HGB CONC 31.4 g/dL (32.0-36.0); Mean Corpuscular Hemoglobin 28.4 pg (27.0-31.0); Mean Corpuscular Volume 90.3 fl (78.0-98.0); Mean Platelet Volume 7.7 fL (7.4-10.4); Platelet Count 500 10x3/uL (130-400); RBC Distribution Width 12.7 % (11.5-14.5); Red Blood Cell (RBC) Count 4.01 mill/uL (4.70-6.10); White Blood Cell (WBC) Count 13.1 10x3/uL (4.8-10.8)
[2022-10-06 22:50] LABS: ALT (SGPT) 11 U/L (8-55); AST (SGOT) 15 U/L (5-34); Albumin 3.6 g/dL (3.4-4.8); Alkaline Phosphatase 106 U/L (40-110); Anion Gap 10 mmol/L (10-20); BUN (Urea Nitrogen) 27 mg/dL (8.4-25.7); Bilirubin, Total Less than 0.2 mg/dL (0.2-1.2); Calc. Creatinine Clearance 0 mL/min (70-130); Calcium 8.9 mg/dL (7.8-10.44); Carbon Dioxide 30 mmol/L (23-31); Chloride 104 mmol/L (98-107); Estimated GFR 63; Globulin 4.3 g/dL (2.4-3.5); Glucose 105 mg/dL (80-115); Potassium 4.5 mmol/L (3.5-5.1); Protein, Total 7.9 g/dL (5.8-8.1); Sodium 139 mmol/L (136-145)
[2022-10-06] MEDS ORDERED: diphenhydrAMINE 50 MG/ML VIAL ONE (23:08)
[2022-10-07] MEDS ORDERED: Morphine 4 MG/ML VIAL ONE (00:16)
[2022-10-07] MEDS ORDERED: Dextrose 50% Abboject 50 ML SYRINGE SLOW IVP PRN (03:17)
[2022-10-07] MEDS ORDERED: Acetaminophen 650 MG Suppository PR PRN (03:17)
[2022-10-07] MEDS ORDERED: Ondansetron PF 4 MG/2 ML Vial IVP PRN (03:17)
[2022-10-07] MEDS ORDERED: HumaLOG 300 UNITS/3 ML VIAL SC PRN ×2 (03:17)
[2022-10-07] MEDS ORDERED: Dextrose 5% in Water 1,000 ML IV PRN (03:17)
[2022-10-07] MEDS ORDERED: Ondansetron ODT 4 MG TAB PO PRN (03:17)
[2022-10-07] MEDS ORDERED: Piperacillin/Tazobactam 3.375 GM in Sodium Chloride 0.9% 100 ML IVPB SCH ×4 (04:00→12:00)
[2022-10-07 04:01] LABS: #Eosinphils 0.1 thou/uL (0.0-0.7); #Lymphocytes 2.1 thou/uL (1.20-3.40); #Monocytes 1.5 thou/uL (0.11-0.59); #Neutrophils 12.8 thou/uL (1.40-6.50); %Basophils 0.2 % (0.0-1.0); %Eosinophils 0.6 % (0.0-10.0); %Lymphocytes 12.6 % (21.0-51.0); %Neutrophils 77.6 % (42.0-75.0); Hemoglobin 12.2 g/dL (14.0-18.0); Mean Corpuscular HGB CONC 32.5 g/dL (32.0-36.0); Mean Corpuscular Hemoglobin 29.3 pg (27.0-31.0); Mean Corpuscular Volume 90.3 fl (78.0-98.0); Mean Platelet Volume 7.6 fL (7.4-10.4); Platelet Count 485 10x3/uL (130-400); RBC Distribution Width 12.8 % (11.5-14.5); Red Blood Cell (RBC) Count 4.16 mill/uL (4.70-6.10); White Blood Cell (WBC) Count 16.5 10x3/uL (4.8-10.8)
[2022-10-07 04:39] LABS: Anion Gap 14 mmol/L (10-20); BUN (Urea Nitrogen) 22 mg/dL (8.4-25.7); Calc. Creatinine Clearance 111 mL/min (70-130); Calcium 8.6 mg/dL (7.8-10.44); Carbon Dioxide 22 mmol/L (23-31); Chloride 107 mmol/L (98-107); Estimated GFR 75; Glucose 111 mg/dL (80-115); Potassium 4.5 mmol/L (3.5-5.1); Sodium 138 mmol/L (136-145)
[2022-10-07] MEDS ORDERED: Amlodipine 10 MG TAB PO SCH (09:00)
[2022-10-07] MEDS ORDERED: VANCOMYCIN 1.25 GM/250 ML BAG IVPB SCH (09:00)
[2022-10-07] MEDS ORDERED: Lisinopril 10 MG TAB ONE (09:21)
[2022-10-07] MEDS ORDERED: Amlodipine 5 MG TAB ONE (09:21)
[2022-10-07] MEDS ORDERED: Piperacillin/Tazobactam 3.375 GM VIAL ONE (09:24)
[2022-10-07] MEDS: Lisinopril 20 MG TAB PO SCH (09:35)
[2022-10-07] MEDS: metFORMIN 500 MG TAB PO SCH ×2 (10:02→20:34)
[2022-10-07] MEDS: Saccharomyces boulardii 250 MG CAP PO SCH (10:02)
[2022-10-07] MEDS: VANCOMYCIN 1.75 GM/500 ML BAG 1.75 GM in Premix Bag 1 BAG IVPB SCH ×2 (10:47→23:06)
[2022-10-07] MEDS: Piperacillin/Tazobactam 3.375 GM in Sodium Chloride 0.9% 100 ML IVPB SCH (17:14)
[2022-10-07] MEDS: Atorvastatin Calcium 20 MG TAB PO SCH (20:34)
[2022-10-08] MEDS: Piperacillin/Tazobactam 3.375 GM in Sodium Chloride 0.9% 100 ML IVPB SCH ×3 (02:41→17:13)
[2022-10-08] MEDS ORDERED: Furosemide 40 MG/4 ML VIAL SLOW IVP SCH (08:15)
[2022-10-08] MEDS ORDERED: Amlodipine 5 MG TAB PO SCH (09:00)
[2022-10-08] MEDS: Saccharomyces boulardii 250 MG CAP PO SCH (09:03)
[2022-10-08] MEDS: metFORMIN 500 MG TAB PO SCH ×2 (09:03→21:25)
[2022-10-08] MEDS: Aspirin Chewable 81 MG TAB PO SCH (09:03)
[2022-10-08] MEDS: Lisinopril 20 MG TAB PO SCH (09:03)
[2022-10-08 10:45] LABS: Vancomycin, Trough 16.9 ug/mL
[2022-10-08] MEDS: VANCOMYCIN 1.75 GM/500 ML BAG 1.75 GM in Premix Bag 1 BAG IVPB SCH ×2 (12:14→22:43)
[2022-10-08] MEDS: Atorvastatin Calcium 20 MG TAB PO SCH (21:25)
[2022-10-09] MEDS: Piperacillin/Tazobactam 3.375 GM in Sodium Chloride 0.9% 100 ML IVPB SCH ×2 (01:15→09:39)
[2022-10-09] MEDS: Acetaminophen 325 MG TAB PO PRN (05:17)
[2022-10-09 08:29] LABS: #Eosinphils 0.5 thou/uL (0.0-0.7); #Lymphocytes 2.4 thou/uL (1.20-3.40); #Monocytes 0.8 thou/uL (0.11-0.59); #Neutrophils 7.3 thou/uL (1.40-6.50); %Basophils 0.3 % (0.0-1.0); %Eosinophils 4.8 % (0.0-10.0); %Lymphocytes 21.7 % (21.0-51.0); %Monocytes 7.2 % (0.0-10.0); Hemoglobin 12.3 g/dL (14.0-18.0); Mean Corpuscular HGB CONC 30.3 g/dL (32.0-36.0); Mean Corpuscular Volume 89.1 fl (78.0-98.0); Mean Platelet Volume 7.7 fL (7.4-10.4); Platelet Count 555 10x3/uL (130-400); RBC Distribution Width 12.6 % (11.5-14.5); Red Blood Cell (RBC) Count 4.55 mill/uL (4.70-6.10)
[2022-10-09 08:50] LABS: Anion Gap 13 mmol/L (10-20); BUN (Urea Nitrogen) 15 mg/dL (8.4-25.7); Calc. Creatinine Clearance 121 mL/min (70-130); Calcium 9.4 mg/dL (7.8-10.44); Carbon Dioxide 28 mmol/L (23-31); Chloride 104 mmol/L (98-107); Estimated GFR 83; Glucose 114 mg/dL (80-115); Potassium 4.8 mmol/L (3.5-5.1); Sodium 140 mmol/L (136-145)
[2022-10-09] MEDS: Saccharomyces boulardii 250 MG CAP PO SCH (09:38)
[2022-10-09] MEDS: Aspirin Chewable 81 MG TAB PO SCH (09:38)
[2022-10-09] MEDS: Lisinopril 20 MG TAB PO SCH (09:38)
[2022-10-09] MEDS: metFORMIN 500 MG TAB PO SCH ×2 (09:38→21:21)
[2022-10-09] MEDS: VANCOMYCIN 1.75 GM/500 ML BAG 1.75 GM in Premix Bag 1 BAG IVPB SCH ×2 (12:30→22:48)
[2022-10-09] MEDS: cefTRIAXone\\ROCEPHIN 2 GM in Sodium Chloride 0.9% 100 ML IVPB SCH (17:51)
[2022-10-09] MEDS: Atorvastatin Calcium 20 MG TAB PO SCH (21:21)
[2022-10-10] MEDS: Acetaminophen 325 MG TAB PO PRN ×2 (05:53→22:58)
[2022-10-10 07:18] LABS: #Basophils 0.1 thou/uL (0.0-0.2); #Eosinphils 0.7 thou/uL (0.0-0.7); #Monocytes 0.9 thou/uL (0.11-0.59); #Neutrophils 7.9 thou/uL (1.40-6.50); %Basophils 0.6 % (0.0-1.0); %Eosinophils 5.4 % (0.0-10.0); %Lymphocytes 24.2 % (21.0-51.0); %Neutrophils 62.7 % (42.0-75.0); Hemoglobin 12.6 g/dL (14.0-18.0); Mean Corpuscular HGB CONC 33.1 g/dL (32.0-36.0); Mean Corpuscular Volume 90.7 fl (78.0-98.0); Mean Platelet Volume 7.6 fL (7.4-10.4); Platelet Count 549 10x3/uL (130-400); RBC Distribution Width 12.6 % (11.5-14.5); Red Blood Cell (RBC) Count 4.19 mill/uL (4.70-6.10); White Blood Cell (WBC) Count 12.5 10x3/uL (4.8-10.8)
[2022-10-10 07:31] LABS: Anion Gap 13 mmol/L (10-20); BUN (Urea Nitrogen) 13 mg/dL (8.4-25.7); Calc. Creatinine Clearance 133 mL/min (70-130); Calcium 9.3 mg/dL (7.8-10.44); Carbon Dioxide 26 mmol/L (23-31); Chloride 104 mmol/L (98-107); Estimated GFR 94; Glucose 120 mg/dL (80-115); Potassium 4.8 mmol/L (3.5-5.1); Sodium 138 mmol/L (136-145)
[2022-10-10] MEDS: Lisinopril 20 MG TAB PO SCH (10:06)
[2022-10-10] MEDS: Aspirin Chewable 81 MG TAB PO SCH (10:06)
[2022-10-10] MEDS: Saccharomyces boulardii 250 MG CAP PO SCH (10:06)
[2022-10-10] MEDS: metFORMIN 500 MG TAB PO SCH ×2 (10:06→19:51)
[2022-10-10] MEDS: Furosemide 40 MG TAB PO SCH (10:06)
[2022-10-10] MEDS: VANCOMYCIN 1.75 GM/500 ML BAG 1.75 GM in Premix Bag 1 BAG IVPB SCH (10:48)
[2022-10-10] MEDS: cefTRIAXone\\ROCEPHIN 2 GM in Sodium Chloride 0.9% 100 ML IVPB SCH (18:31)
[2022-10-10] MEDS: Atorvastatin Calcium 20 MG TAB PO SCH (19:51)
[2022-10-11 07:33] LABS: #Basophils 0.1 thou/uL (0.0-0.2); #Eosinphils 0.6 thou/uL (0.0-0.7); #Lymphocytes 2.7 thou/uL (1.20-3.40); #Monocytes 0.9 thou/uL (0.11-0.59); #Neutrophils 7.6 thou/uL (1.40-6.50); %Basophils 0.5 % (0.0-1.0); %Eosinophils 4.8 % (0.0-10.0); %Lymphocytes 22.4 % (21.0-51.0); %Monocytes 7.9 % (0.0-10.0); %Neutrophils 64.4 % (42.0-75.0); Mean Corpuscular HGB CONC 31.1 g/dL (32.0-36.0); Mean Corpuscular Hemoglobin 27.8 pg (27.0-31.0); Mean Corpuscular Volume 89.5 fl (78.0-98.0); Mean Platelet Volume 7.3 fL (7.4-10.4); Platelet Count 603 10x3/uL (130-400); RBC Distribution Width 12.7 % (11.5-14.5); Red Blood Cell (RBC) Count 4.67 mill/uL (4.70-6.10); White Blood Cell (WBC) Count 11.8 10x3/uL (4.8-10.8)
[2022-10-11] MEDS: metFORMIN 500 MG TAB PO SCH ×2 (08:24→20:46)
[2022-10-11] MEDS: Saccharomyces boulardii 250 MG CAP PO SCH (08:24)
[2022-10-11] MEDS: Aspirin Chewable 81 MG TAB PO SCH (08:24)
[2022-10-11] MEDS: Furosemide 40 MG TAB PO SCH (08:24)
[2022-10-11] MEDS: Lisinopril 20 MG TAB PO SCH (08:25)
[2022-10-11 09:20] LABS: Anion Gap 15 mmol/L (10-20); BUN (Urea Nitrogen) 15 mg/dL (8.4-25.7); Calc. Creatinine Clearance 137 mL/min (70-130); Calcium 9.3 mg/dL (7.8-10.44); Carbon Dioxide 25 mmol/L (23-31); Chloride 104 mmol/L (98-107); Estimated GFR 95; Glucose 97 mg/dL (80-115); Potassium 4.4 mmol/L (3.5-5.1); Sodium 140 mmol/L (136-145)
[2022-10-11 10:45] LABS: Vancomycin, Trough 12.4 ug/mL
[2022-10-11] MEDS: cefTRIAXone\\ROCEPHIN 2 GM in Sodium Chloride 0.9% 100 ML IVPB SCH (17:59)
[2022-10-11] MEDS: Atorvastatin Calcium 20 MG TAB PO SCH (20:46)
[2022-10-12 07:22] LABS: #Basophils 0.1 thou/uL (0.0-0.2); #Eosinphils 0.5 thou/uL (0.0-0.7); #Monocytes 0.8 thou/uL (0.11-0.59); %Basophils 0.6 % (0.0-1.0); %Eosinophils 4.1 % (0.0-10.0); %Lymphocytes 24.4 % (21.0-51.0); %Monocytes 6.6 % (0.0-10.0); %Neutrophils 64.3 % (42.0-75.0); Hemoglobin 12.9 g/dL (14.0-18.0); Mean Corpuscular HGB CONC 31.4 g/dL (32.0-36.0); Mean Corpuscular Hemoglobin 28.1 pg (27.0-31.0); Mean Corpuscular Volume 89.5 fl (78.0-98.0); Mean Platelet Volume 7.5 fL (7.4-10.4); Platelet Count 597 10x3/uL (130-400); Red Blood Cell (RBC) Count 4.58 mill/uL (4.70-6.10); White Blood Cell (WBC) Count 12.4 10x3/uL (4.8-10.8)
[2022-10-12 07:47] LABS: Anion Gap 17 mmol/L (10-20); BUN (Urea Nitrogen) 19 mg/dL (8.4-25.7); Calc. Creatinine Clearance 129 mL/min (70-130); Calcium 9.1 mg/dL (7.8-10.44); Carbon Dioxide 24 mmol/L (23-31); Chloride 102 mmol/L (98-107); Estimated GFR 90; Glucose 125 mg/dL (80-115); Potassium 4.5 mmol/L (3.5-5.1); Sodium 138 mmol/L (136-145)
[2022-10-12] MEDS: Aspirin Chewable 81 MG TAB PO SCH (08:25)
[2022-10-12] MEDS: Lisinopril 20 MG TAB PO SCH (08:25)
[2022-10-12] MEDS: metFORMIN 500 MG TAB PO SCH (08:25)
[2022-10-12] MEDS: Furosemide 40 MG TAB PO SCH (08:26)
[2022-10-12] MEDS: Saccharomyces boulardii 250 MG CAP PO SCH (08:26)
[2022-10-12 19:37] VITALS: BP 104/66; TEMP 98.9
== END 2022-10-12 17:03 | disposition home or self-care (01) | DRG 872 ==
LOC: ERS 19:07 → ERHOLD 10-07 00:19 → T4-A 10-07 00:59
PROVIDERS: ADMIT Student in an Organized Health Care Education/Training Program; ATTEND Hospitalist
DX: A41.9 Sepsis, unspecified organism (principal); L03.116 Cellulitis of left lower limb; E78.00 Pure hypercholesterolemia, unspecified; I12.9 Hypertensive chronic kidney disease with stage 1 through stage 4 chronic kidney disease, or unspecified chronic kidney disease; E11.22 Type 2 diabetes mellitus with diabetic chronic kidney disease; F17.210 Nicotine dependence, cigarettes, uncomplicated; M16.12 Unilateral primary osteoarthritis, left hip; D63.1 Anemia in chronic kidney disease; N18.9 Chronic kidney disease, unspecified; E66.9 Obesity, unspecified; Z98.42 Cataract extraction status, left eye; Z98.41 Cataract extraction status, right eye; Z68.35 Body mass index [BMI] 35.0-35.9, adult; Z79.84 Long term (current) use of oral hypoglycemic drugs; Z79.82 Long term (current) use of aspirin; Z79.899 Other long term (current) drug therapy
CPT/HCPCS: 36415; 36416; 80048; 80053; 80202; 83605; 83880; 85025; 85379; 85652; 86140; 87040; 87081; 94760; 96365; 96375; J0696; J1200; J1650; J1940; J2270; J2543; J3370; J3490; J7030

== ENCOUNTER 2025-01-04 13:42 | Inpatient (IN) | payer OTHER ==
[~2025-01-04 13:42] MED LIST changes: -Iopamidol-370 76% 500 ML 1 ML ONE; +Iopamidol-370 76% 500 ML MDV (1 ML CHARGE) ONE
[2025-01-04] MEDS ORDERED: Rocuronium Bromide 10 MG/ML (10ML VIAL) ONE (13:51)
[2025-01-04 14:25] LABS: #Basophils 0.06 10x3/uL (0.0-0.2); #Eosinophils 0.05 10x3/uL (0.0-0.7); #Monocytes 1.47 10x3/uL (0.11-0.59); #Neutrophils 9.38 10x3/uL (1.40-6.50); %Basophils 0.4 % (0.0-1.0); %Eosinophils 0.3 % (0.0-10.0); %Lymphocytes 28.2 % (21.0-51.0); %Monocytes 9.6 % (0.0-10.0); %Neutrophils 61.0 % (42.0-75.0); Hematocrit 42.3 % (42.0-52.0); Hemoglobin 12.6 g/dL (14.0-18.0); Mean Corpuscular Hemoglobin 26.6 pg (27.0-31.0); Mean Corpuscular Volume 89.2 fL (78.0-98.0); Platelet Count 572 10x3/uL (130-400); Red Blood Cell (RBC) Count 4.74 mill/uL (4.70-6.10); White Blood Cell (WBC) Count 15.36 10x3/uL (4.8-10.8)
[2025-01-04] MEDS ORDERED: Cefepime 2 GM VIAL ONE (14:29)
[2025-01-04] MEDS ORDERED: VANCOMYCIN 2 GRAM/400 ML BAG ONE (14:29)
[2025-01-04 14:35] LABS: Acetaminophen Less than 10 mcg/mL (Less than 10); Magnesium 2.1 mg/dL (1.6-2.6); Salicylate Less than 8.0 mg/dL (Less than 8.0)
[2025-01-04 14:36] LABS: ALT (SGPT) 29 U/L (Less than 45); AST (SGOT) 28 U/L (11-34); Albumin 3.3 g/dL (3.1-4.5); Alkaline Phosphatase 94 U/L (40-110); Anion Gap 12 mmol/L (10-20); BUN (Urea Nitrogen) 20 mg/dL (8.4-25.7); Bilirubin, Total 0.2 mg/dL (0.3-1.2); Calc. Creatinine Clearance 0 mL/min (70-130); Calcium 8.3 mg/dL (7.8-10.44); Carbon Dioxide 28 mmol/L (23-31); Chloride 105 mmol/L (98-107); Globulin 4.4 g/dL (2.4-3.5); Glucose 118 mg/dL (80-115); Potassium 5.6 mmol/L (3.5-5.1); Sodium 139 mmol/L (136-145)
[2025-01-04 14:39] LABS: Troponin I 0.120 ng/mL (< 0.028)
[2025-01-04 14:42] LABS: INR-International Normal Ratio 1.2; PTT 33.4 sec (22.9-36.1); Prothrombin Time 14.9 sec (12.0-14.7)
[2025-01-04 15:08] LABS: Bacteria/HPF None Seen HPF (None Seen); CAUTI Indications for Culture Alt mental st,lethar; Glucose, Urine (Dipstick) Normal (Negative); Leukocyte Negative Leu/uL (Negative); Protein, Urine (Dipstick) 200 mg/dL (Neg-Trace); Specific Gravity, Urine 1.030 (1.002-1.036)
[2025-01-04 15:09] LABS: Urine Culture Reflex No No
[2025-01-04 15:12] LABS: Cocaine Metabolite Screen Negative (Negative); THC/Cannabinoid Screen Negative (Negative); Tricyclic Screen Negative (Negative)
[2025-01-04] MEDS ORDERED: hydrALAZINE 20 MG/ML VIAL ONE (15:26)
[2025-01-04] MEDS ORDERED: Glucagon 1 MG/ML KIT IM PRN (16:41)
[2025-01-04] MEDS ORDERED: Dextrose 50% Abboject 50 ML SYRINGE SLOW IVP PRN (16:41)
[2025-01-04 19:05] LABS: Troponin I 0.148 ng/mL (< 0.028)
[2025-01-04] MEDS ORDERED: Ventilator Sedation Protocol 1 EACH FS SCH (19:15)
[2025-01-04] MEDS ORDERED: Fentanyl BOLUS 100 ML IVPB PRN (19:30)
[2025-01-04] MEDS ORDERED: DISCONTINUE PREVIOUS NARCOTIC PAIN MEDICATIONS AND BENZODIAZEPINES FS SCH (19:30)
[2025-01-04] MEDS ORDERED: Propofol BOLUS 1,000 MG/100 ML VIAL IV PRN (19:30)
[2025-01-04 19:40] VITALS: BMI 45.9
[2025-01-04 22:08] LABS: Troponin I 0.126 ng/mL (< 0.028)
[2025-01-04 22:17] LABS: Anion Gap 15 mmol/L (10-20); BUN (Urea Nitrogen) 24 mg/dL (8.4-25.7); Calc. Creatinine Clearance 125 mL/min (70-130); Calcium 8.3 mg/dL (7.8-10.44); Carbon Dioxide 26 mmol/L (23-31); Chloride 105 mmol/L (98-107); Glucose 123 mg/dL (80-115); Potassium 5.2 mmol/L (3.5-5.1); Sodium 141 mmol/L (136-145)
[2025-01-05] MEDS: Furosemide 40 MG (4 mL) VIAL SLOW IVP SCH ×2 (05:19→11:01)
[2025-01-05 05:57] LABS: Hematocrit 41.2 % (42.0-52.0); Hemoglobin 12.4 g/dL (14.0-18.0); Mean Corpuscular Hemoglobin 26.7 pg (27.0-31.0); Mean Corpuscular Volume 88.8 fL (78.0-98.0); Platelet Count 521 10x3/uL (130-400); Red Blood Cell (RBC) Count 4.64 mill/uL (4.70-6.10); White Blood Cell (WBC) Count 25.10 10x3/uL (4.8-10.8)
[2025-01-05 06:03] LABS: ALT (SGPT) 22 U/L (Less than 45); AST (SGOT) 22 U/L (11-34); Albumin 2.8 g/dL (3.1-4.5); Alkaline Phosphatase 79 U/L (40-110); Anion Gap 15 mmol/L (10-20); BUN (Urea Nitrogen) 30 mg/dL (8.4-25.7); Bilirubin, Total 0.3 mg/dL (0.3-1.2); Calc. Creatinine Clearance 109 mL/min (70-130); Calcium 8.4 mg/dL (7.8-10.44); Carbon Dioxide 26 mmol/L (23-31); Chloride 104 mmol/L (98-107); Globulin 4.2 g/dL (2.4-3.5); Glucose 152 mg/dL (80-115); Potassium 5.6 mmol/L (3.5-5.1); Sodium 139 mmol/L (136-145)
[2025-01-05 06:34] LABS: Platelet Adequacy Comment Platelets Increased; Smudge Cells 7.9 %
[2025-01-05] MEDS: Enoxaparin 40 MG (0.4 mL) SYRINGE SC SCH (08:46)
[2025-01-05] MEDS: LOKELMA 10 GM PACKET PO SCH (08:46)
[2025-01-05] MEDS: Albumin 25% 25 GM (100 mL) BOT IVPB SCH (08:46)
[2025-01-05] MEDS: cefTRIAXone\\ROCEPHIN 1 GM in Sodium Chloride 0.9% 100 ML IVPB SCH ×2 (10:03→11:59)
[2025-01-05] MEDS: Pantoprazole 40 MG VIAL IVP SCH (10:04)
[2025-01-05] MEDS: Senokot S 8.6-50 MG TAB PER TUBE SCH (10:04)
[2025-01-05 10:17] LABS: Hematocrit 42.0 % (42.0-52.0); Hemoglobin 12.7 g/dL (14.0-18.0); Platelet Count 504 10x3/uL (130-400)
[2025-01-05 11:24] LABS: Troponin I 0.107 ng/mL (< 0.028)
[2025-01-05 13:18] LABS: Anion Gap 16 mmol/L (10-20); BUN (Urea Nitrogen) 34 mg/dL (8.4-25.7); Calc. Creatinine Clearance 108 mL/min (70-130); Calcium 8.6 mg/dL (7.8-10.44); Carbon Dioxide 26 mmol/L (23-31); Chloride 102 mmol/L (98-107); Glucose 143 mg/dL (80-115); Potassium 4.9 mmol/L (3.5-5.1); Sodium 139 mmol/L (136-145)
[2025-01-05] MEDS: Heparin 10,000 UNITS/ 10 ML VIAL SLOW IVP SCH (13:22)
[2025-01-06 02:45] LABS: #Basophils 0.04 10x3/uL (0.0-0.2); #Eosinophils Less than 0.03 10x3/uL (0.0-0.7); #Monocytes 1.62 10x3/uL (0.11-0.59); #Neutrophils 16.66 10x3/uL (1.40-6.50); %Basophils 0.2 % (0.0-1.0); %Eosinophils 0.0 % (0.0-10.0); %Lymphocytes 12.4 % (21.0-51.0); %Monocytes 7.7 % (0.0-10.0); %Neutrophils 79.2 % (42.0-75.0); Hematocrit 34.5 % (42.0-52.0); Hemoglobin 10.5 g/dL (14.0-18.0); Mean Corpuscular Hemoglobin 26.6 pg (27.0-31.0); Mean Corpuscular Volume 87.6 fL (78.0-98.0); Platelet Count 441 10x3/uL (130-400); Red Blood Cell (RBC) Count 3.94 mill/uL (4.70-6.10); White Blood Cell (WBC) Count 21.03 10x3/uL (4.8-10.8)
[2025-01-06 04:20] LABS: ALT (SGPT) 15 U/L (Less than 45); AST (SGOT) 17 U/L (11-34); Albumin 3.2 g/dL (3.1-4.5); Alkaline Phosphatase 59 U/L (40-110); Anion Gap 14 mmol/L (10-20); BUN (Urea Nitrogen) 40 mg/dL (8.4-25.7); Bilirubin, Total 0.4 mg/dL (0.3-1.2); Calc. Creatinine Clearance 128 mL/min (70-130); Calcium 8.6 mg/dL (7.8-10.44); Carbon Dioxide 28 mmol/L (23-31); Chloride 102 mmol/L (98-107); Globulin 3.7 g/dL (2.4-3.5); Glucose 125 mg/dL (80-115); Potassium 4.5 mmol/L (3.5-5.1); Sodium 139 mmol/L (136-145)
[2025-01-06] MEDS: Pantoprazole 40 MG VIAL IVP SCH (07:57)
[2025-01-06] MEDS: Aspirin 81 mg Enteric Coated Tablet PO SCH (09:28)
[2025-01-06] MEDS: DC Sedation Protocol FS ONE (12:33)
[2025-01-06 17:22] LABS: Troponin I 0.044 ng/mL (< 0.028)
[2025-01-07 03:54] LABS: #Basophils 0.03 10x3/uL (0.0-0.2); #Eosinophils 0.05 10x3/uL (0.0-0.7); #Monocytes 1.63 10x3/uL (0.11-0.59); #Neutrophils 13.30 10x3/uL (1.40-6.50); %Basophils 0.2 % (0.0-1.0); %Eosinophils 0.3 % (0.0-10.0); %Lymphocytes 18.1 % (21.0-51.0); %Monocytes 8.9 % (0.0-10.0); %Neutrophils 72.1 % (42.0-75.0); Hematocrit 36.1 % (42.0-52.0); Hemoglobin 11.0 g/dL (14.0-18.0); Mean Corpuscular Hemoglobin 26.4 pg (27.0-31.0); Mean Corpuscular Volume 86.8 fL (78.0-98.0); Platelet Count 439 10x3/uL (130-400); Red Blood Cell (RBC) Count 4.16 mill/uL (4.70-6.10); White Blood Cell (WBC) Count 18.41 10x3/uL (4.8-10.8)
[2025-01-07 04:24] LABS: ALT (SGPT) 11 U/L (Less than 45); AST (SGOT) 12 U/L (11-34); Albumin 3.1 g/dL (3.1-4.5); Alkaline Phosphatase 58 U/L (40-110); Anion Gap 12 mmol/L (10-20); BUN (Urea Nitrogen) 36 mg/dL (8.4-25.7); Bilirubin, Total 0.5 mg/dL (0.3-1.2); Calc. Creatinine Clearance 163 mL/min (70-130); Calcium 8.8 mg/dL (7.8-10.44); Carbon Dioxide 33 mmol/L (23-31); Chloride 100 mmol/L (98-107); Globulin 3.9 g/dL (2.4-3.5); Glucose 102 mg/dL (80-115); Potassium 4.7 mmol/L (3.5-5.1); Sodium 140 mmol/L (136-145); Uric Acid 7.2 mg/dL (3.7-7.7)
[2025-01-07 10:03] LABS: Hematocrit 37.8 % (42.0-52.0); Hemoglobin 11.4 g/dL (14.0-18.0); Platelet Count 428 10x3/uL (130-400)
[2025-01-07] MEDS: Sacubitril 24MG/Valsartan 26 MG TAB PO SCH (21:57)
[2025-01-08] MEDS: Acetaminophen 325 MG TAB PO PRN (00:54)
[2025-01-08 04:25] LABS: #Basophils 0.03 10x3/uL (0.0-0.2); #Eosinophils 0.03 10x3/uL (0.0-0.7); #Monocytes 1.42 10x3/uL (0.11-0.59); #Neutrophils 11.06 10x3/uL (1.40-6.50); %Basophils 0.2 % (0.0-1.0); %Eosinophils 0.2 % (0.0-10.0); %Lymphocytes 19.2 % (21.0-51.0); %Monocytes 9.1 % (0.0-10.0); %Neutrophils 70.9 % (42.0-75.0); Hematocrit 40.1 % (42.0-52.0); Hemoglobin 12.0 g/dL (14.0-18.0); Mean Corpuscular Hemoglobin 26.4 pg (27.0-31.0); Mean Corpuscular Volume 88.3 fL (78.0-98.0); Platelet Count 473 10x3/uL (130-400); Red Blood Cell (RBC) Count 4.54 mill/uL (4.70-6.10); White Blood Cell (WBC) Count 15.61 10x3/uL (4.8-10.8)
[2025-01-08 04:44] LABS: ALT (SGPT) 10 U/L (Less than 45); AST (SGOT) 15 U/L (11-34); Albumin 3.2 g/dL (3.1-4.5); Alkaline Phosphatase 60 U/L (40-110); Anion Gap 13 mmol/L (10-20); BUN (Urea Nitrogen) 35 mg/dL (8.4-25.7); Bilirubin, Total 0.4 mg/dL (0.3-1.2); Calc. Creatinine Clearance 152 mL/min (70-130); Calcium 9.3 mg/dL (7.8-10.44); Carbon Dioxide 35 mmol/L (23-31); Chloride 97 mmol/L (98-107); Globulin 4.5 g/dL (2.4-3.5); Glucose 114 mg/dL (80-115); Magnesium 2.0 mg/dL (1.6-2.6); Potassium 4.8 mmol/L (3.5-5.1); Sodium 140 mmol/L (136-145)
[2025-01-08] MEDS: Sacubitril 24MG/Valsartan 26 MG TAB PO SCH (08:26)
[2025-01-08] MEDS: Pantoprazole 40 MG DR.TAB PO SCH (08:27)
[2025-01-08] MEDS: Digoxin 0.125 MG TAB PO SCH (08:27)
[2025-01-09 04:05] LABS: #Basophils 0.03 10x3/uL (0.0-0.2); #Eosinophils 0.10 10x3/uL (0.0-0.7); #Monocytes 1.26 10x3/uL (0.11-0.59); #Neutrophils 8.72 10x3/uL (1.40-6.50); %Basophils 0.2 % (0.0-1.0); %Eosinophils 0.7 % (0.0-10.0); %Lymphocytes 26.9 % (21.0-51.0); %Monocytes 9.1 % (0.0-10.0); %Neutrophils 62.7 % (42.0-75.0); Hematocrit 45.7 % (42.0-52.0); Hemoglobin 13.6 g/dL (14.0-18.0); Mean Corpuscular Hemoglobin 26.1 pg (27.0-31.0); Mean Corpuscular Volume 87.7 fL (78.0-98.0); Platelet Count 543 10x3/uL (130-400); Red Blood Cell (RBC) Count 5.21 mill/uL (4.70-6.10); White Blood Cell (WBC) Count 13.91 10x3/uL (4.8-10.8)
[2025-01-09 04:18] LABS: ALT (SGPT) 14 U/L (Less than 45); AST (SGOT) 19 U/L (11-34); Albumin 3.5 g/dL (3.1-4.5); Alkaline Phosphatase 68 U/L (40-110); Anion Gap 14 mmol/L (10-20); BUN (Urea Nitrogen) 36 mg/dL (8.4-25.7); Bilirubin, Total 0.5 mg/dL (0.3-1.2); Calc. Creatinine Clearance 139 mL/min (70-130); Calcium 9.4 mg/dL (7.8-10.44); Carbon Dioxide 29 mmol/L (23-31); Chloride 97 mmol/L (98-107); Globulin 5.0 g/dL (2.4-3.5); Glucose 106 mg/dL (80-115); Potassium 4.7 mmol/L (3.5-5.1); Sodium 135 mmol/L (136-145)
[2025-01-09] MEDS: Enoxaparin 40 MG (0.4 mL) SYRINGE SC SCH (09:06)
[2025-01-09] MEDS: Furosemide 40 MG TAB PO SCH (09:07)
[2025-01-09] MEDS: cefTRIAXone (ROCEPHIN) 1 GM VIAL ONE (09:15)
[2025-01-09] MEDS ORDERED: Communication Order-Pharmacy FS SCH (21:00)
[2025-01-10 03:57] LABS: #Basophils 0.07 10x3/uL (0.0-0.2); #Eosinophils 0.46 10x3/uL (0.0-0.7); #Monocytes 1.45 10x3/uL (0.11-0.59); #Neutrophils 8.66 10x3/uL (1.40-6.50); %Basophils 0.5 % (0.0-1.0); %Eosinophils 3.1 % (0.0-10.0); %Lymphocytes 27.3 % (21.0-51.0); %Monocytes 9.8 % (0.0-10.0); %Neutrophils 58.7 % (42.0-75.0); Hematocrit 47.2 % (42.0-52.0); Hemoglobin 14.1 g/dL (14.0-18.0); Mean Corpuscular Hemoglobin 26.1 pg (27.0-31.0); Mean Corpuscular Volume 87.2 fL (78.0-98.0); Platelet Count 499 10x3/uL (130-400); Red Blood Cell (RBC) Count 5.41 mill/uL (4.70-6.10); White Blood Cell (WBC) Count 14.76 10x3/uL (4.8-10.8)
[2025-01-10 04:11] LABS: Anion Gap 16 mmol/L (10-20); BUN (Urea Nitrogen) 49 mg/dL (8.4-25.7); Calc. Creatinine Clearance 112 mL/min (70-130); Calcium 9.0 mg/dL (7.8-10.44); Carbon Dioxide 28 mmol/L (23-31); Chloride 99 mmol/L (98-107); Glucose 116 mg/dL (80-115); Potassium 4.5 mmol/L (3.5-5.1); Sodium 138 mmol/L (136-145)
[2025-01-10] MEDS: Furosemide 20 MG TAB PO SCH (10:10)
[2025-01-10] MEDS: Cyclobenzaprine 10 MG TAB PO SCH (12:22)
[2025-01-10 14:38] VITALS: BMI 40.8
[2025-01-10] MEDS: Transdermal Patch Removal TOP SCH (23:00)
[2025-01-11 04:13] LABS: #Basophils 0.06 10x3/uL (0.0-0.2); #Eosinophils 0.62 10x3/uL (0.0-0.7); #Monocytes 1.27 10x3/uL (0.11-0.59); #Neutrophils 11.51 10x3/uL (1.40-6.50); %Basophils 0.4 % (0.0-1.0); %Eosinophils 3.7 % (0.0-10.0); %Lymphocytes 19.1 % (21.0-51.0); %Monocytes 7.6 % (0.0-10.0); %Neutrophils 68.6 % (42.0-75.0); Hematocrit 43.3 % (42.0-52.0); Hemoglobin 13.2 g/dL (14.0-18.0); Mean Corpuscular Hemoglobin 26.6 pg (27.0-31.0); Mean Corpuscular Volume 87.1 fL (78.0-98.0); Platelet Count 458 10x3/uL (130-400); Red Blood Cell (RBC) Count 4.97 mill/uL (4.70-6.10); White Blood Cell (WBC) Count 16.77 10x3/uL (4.8-10.8)
[2025-01-11 04:25] LABS: Anion Gap 14 mmol/L (10-20); BUN (Urea Nitrogen) 61 mg/dL (8.4-25.7); Calc. Creatinine Clearance 107 mL/min (70-130); Carbon Dioxide 27 mmol/L (23-31); Chloride 101 mmol/L (98-107); Potassium 4.5 mmol/L (3.5-5.1); Sodium 137 mmol/L (136-145)
[2025-01-11 04:26] LABS: Calcium 8.6 mg/dL (7.8-10.44); Glucose 126 mg/dL (80-115)
[2025-01-11] MEDS ORDERED: Communication Order-Pharmacy FS SCH (17:15)
[2025-01-12 04:03] LABS: #Basophils 0.05 10x3/uL (0.0-0.2); #Eosinophils 0.78 10x3/uL (0.0-0.7); #Monocytes 1.36 10x3/uL (0.11-0.59); #Neutrophils 10.18 10x3/uL (1.40-6.50); %Basophils 0.3 % (0.0-1.0); %Eosinophils 5.0 % (0.0-10.0); %Lymphocytes 20.2 % (21.0-51.0); %Monocytes 8.7 % (0.0-10.0); %Neutrophils 65.2 % (42.0-75.0); Hematocrit 43.2 % (42.0-52.0); Hemoglobin 12.9 g/dL (14.0-18.0); Mean Corpuscular Hemoglobin 26.5 pg (27.0-31.0); Mean Corpuscular Volume 88.7 fL (78.0-98.0); Platelet Count 457 10x3/uL (130-400); Red Blood Cell (RBC) Count 4.87 mill/uL (4.70-6.10); White Blood Cell (WBC) Count 15.62 10x3/uL (4.8-10.8)
[2025-01-12 04:45] LABS: Anion Gap 12 mmol/L (10-20); BUN (Urea Nitrogen) 45 mg/dL (8.4-25.7); Calc. Creatinine Clearance 137 mL/min (70-130); Calcium 8.7 mg/dL (7.8-10.44); Carbon Dioxide 25 mmol/L (23-31); Chloride 107 mmol/L (98-107); Glucose 105 mg/dL (80-115); Potassium 4.7 mmol/L (3.5-5.1); Sodium 139 mmol/L (136-145)
[2025-01-12] MEDS ORDERED: Lidocaine 1% (PF) 30 ML VIAL ONE (10:02)
[2025-01-12] MEDS ORDERED: Heparin 10,000 UNITS/ 10 ML VIAL ONE (10:02)
[2025-01-12] MEDS ORDERED: Nitroglycerin 50 MG/250 ML BOT 0 ML ONE (10:03)
[2025-01-12] MEDS ORDERED: Iopamidol 370 76% 100 ML VIAL ONE (12:43)
[2025-01-12] MEDS ORDERED: diphenhydrAMINE 50 MG/ML VIAL ONE (13:04)
[2025-01-12] MEDS ORDERED: Nitroglycerin 50 MG/250 ML BOT 250 ML ONE (13:25)
[2025-01-12] MEDS ORDERED: Nitroglycerin 0.4 MG TAB (25 Tab Bottle) SL PRN (14:23)
[2025-01-12] MEDS: Apixaban 5 MG TAB PO SCH (20:28)
[2025-01-13] MEDS: cefTRIAXone (ROCEPHIN) 1 GM VIAL ONE (08:39)
[2025-01-13 09:37] LABS: #Basophils 0.05 10x3/uL (0.0-0.2); #Eosinophils 0.69 10x3/uL (0.0-0.7); #Monocytes 1.05 10x3/uL (0.11-0.59); #Neutrophils 9.32 10x3/uL (1.40-6.50); %Basophils 0.4 % (0.0-1.0); %Eosinophils 5.0 % (0.0-10.0); %Lymphocytes 18.3 % (21.0-51.0); %Monocytes 7.7 % (0.0-10.0); %Neutrophils 68.1 % (42.0-75.0); Hematocrit 42.8 % (42.0-52.0); Hemoglobin 13.0 g/dL (14.0-18.0); Mean Corpuscular Hemoglobin 26.6 pg (27.0-31.0); Mean Corpuscular Volume 87.5 fL (78.0-98.0); Platelet Count 468 10x3/uL (130-400); Red Blood Cell (RBC) Count 4.89 mill/uL (4.70-6.10); White Blood Cell (WBC) Count 13.69 10x3/uL (4.8-10.8)
[2025-01-13 09:52] LABS: Anion Gap 13 mmol/L (10-20); BUN (Urea Nitrogen) 28 mg/dL (8.4-25.7); Calc. Creatinine Clearance 180 mL/min (70-130); Calcium 9.2 mg/dL (7.8-10.44); Carbon Dioxide 23 mmol/L (23-31); Chloride 107 mmol/L (98-107); Glucose 97 mg/dL (80-115); Potassium 4.8 mmol/L (3.5-5.1); Sodium 138 mmol/L (136-145)
[2025-01-14 03:50] LABS: #Basophils 0.05 10x3/uL (0.0-0.2); #Eosinophils 0.62 10x3/uL (0.0-0.7); #Monocytes 1.07 10x3/uL (0.11-0.59); #Neutrophils 9.65 10x3/uL (1.40-6.50); %Basophils 0.3 % (0.0-1.0); %Eosinophils 4.1 % (0.0-10.0); %Lymphocytes 24.4 % (21.0-51.0); %Monocytes 7.0 % (0.0-10.0); %Neutrophils 63.6 % (42.0-75.0); Hematocrit 42.2 % (42.0-52.0); Hemoglobin 13.1 g/dL (14.0-18.0); Mean Corpuscular Hemoglobin 26.8 pg (27.0-31.0); Mean Corpuscular Volume 86.3 fL (78.0-98.0); Platelet Count 502 10x3/uL (130-400); Red Blood Cell (RBC) Count 4.89 mill/uL (4.70-6.10); White Blood Cell (WBC) Count 15.19 10x3/uL (4.8-10.8)
[2025-01-14 04:18] LABS: Anion Gap 12 mmol/L (10-20); BUN (Urea Nitrogen) 28 mg/dL (8.4-25.7); Calc. Creatinine Clearance 146 mL/min (70-130); Calcium 9.4 mg/dL (7.8-10.44); Carbon Dioxide 25 mmol/L (23-31); Chloride 106 mmol/L (98-107); Glucose 102 mg/dL (80-115); Potassium 5.3 mmol/L (3.5-5.1); Sodium 138 mmol/L (136-145)
[2025-01-14] MEDS: Furosemide 40 MG (4 mL) VIAL SLOW IVP SCH (14:15)
[2025-01-15 04:44] LABS: #Basophils 0.09 10x3/uL (0.0-0.2); #Eosinophils 0.48 10x3/uL (0.0-0.7); #Monocytes 1.19 10x3/uL (0.11-0.59); #Neutrophils 10.23 10x3/uL (1.40-6.50); %Basophils 0.6 % (0.0-1.0); %Eosinophils 3.0 % (0.0-10.0); %Lymphocytes 24.8 % (21.0-51.0); %Monocytes 7.4 % (0.0-10.0); %Neutrophils 63.7 % (42.0-75.0); Hematocrit 41.7 % (42.0-52.0); Hemoglobin 12.8 g/dL (14.0-18.0); Mean Corpuscular Hemoglobin 26.4 pg (27.0-31.0); Mean Corpuscular Volume 86.2 fL (78.0-98.0); Platelet Count 497 10x3/uL (130-400); Red Blood Cell (RBC) Count 4.84 mill/uL (4.70-6.10); White Blood Cell (WBC) Count 16.04 10x3/uL (4.8-10.8)
[2025-01-15 04:58] LABS: Anion Gap 13 mmol/L (10-20); BUN (Urea Nitrogen) 35 mg/dL (8.4-25.7); Calc. Creatinine Clearance 123 mL/min (70-130); Calcium 8.9 mg/dL (7.8-10.44); Carbon Dioxide 25 mmol/L (23-31); Chloride 105 mmol/L (98-107); Glucose 105 mg/dL (80-115); Magnesium 1.7 mg/dL (1.6-2.6); Potassium 4.1 mmol/L (3.5-5.1); Sodium 139 mmol/L (136-145)
[2025-01-15] MEDS: Furosemide 40 MG TAB PO SCH (08:35)
[2025-01-15 10:13] VITALS: BP 100/58; TEMP 98.3
== END 2025-01-15 14:05 | disposition swing bed (61) | DRG 280 ==
LOC: ERS 13:42 → CCU 16:49 → PCU 01-06 17:55
PROVIDERS: ADMIT Internal Medicine; ATTEND Family Medicine
PROC: B2111ZZ Fluoroscopy of Multiple Coronary Arteries using Low Osmolar Contrast (ICD-10-PCS; principal; 2025-01-04)
PROC: 3E03329 Introduction of Other Anti-infective into Peripheral Vein, Percutaneous Approach (ICD-10-PCS; 2025-01-04)
PROC: 30233J1 Transfusion of Nonautologous Serum Albumin into Peripheral Vein, Percutaneous Approach (ICD-10-PCS; 2025-01-05)
DX: I13.0 Hypertensive heart and chronic kidney disease with heart failure and stage 1 through stage 4 chronic kidney disease, or unspecified chronic kidney disease (principal); A41.9 Sepsis, unspecified organism; I21.A1 Myocardial infarction type 2; G93.41 Metabolic encephalopathy; I50.23 Acute on chronic systolic (congestive) heart failure; J96.01 Acute respiratory failure with hypoxia; J44.1 Chronic obstructive pulmonary disease with (acute) exacerbation; N17.9 Acute kidney failure, unspecified; Z68.41 Body mass index [BMI] 40.0-44.9, adult; E11.22 Type 2 diabetes mellitus with diabetic chronic kidney disease; N18.30 Chronic kidney disease, stage 3 unspecified; E87.5 Hyperkalemia; F17.200 Nicotine dependence, unspecified, uncomplicated; E66.01 Morbid (severe) obesity due to excess calories; D72.829 Elevated white blood cell count, unspecified; I48.0 Paroxysmal atrial fibrillation; E78.5 Hyperlipidemia, unspecified; I89.0 Lymphedema, not elsewhere classified; Z99.81 Dependence on supplemental oxygen; G47.33 Obstructive sleep apnea (adult) (pediatric); Z79.899 Other long term (current) drug therapy; Z79.1 Long term (current) use of non-steroidal anti-inflammatories (NSAID)
CPT/HCPCS: 31500; 36415; 36416; 51702; 70450; 71045; 71275; 80048; 80053; 80306; 80307; 81001; 83036; 83605; 83735; 83880; 84145; 84484; 84550; 85025; 85610; 85730; 86141; 87040; 87426; 93005; 93306; 93458; 94002; 94003; 94640; 94760; 96361; 96365; 96366; 96367; 96368; 96375; 97139; 99152; 99153; C1769; C1894; J0360; J0692; J0696; J1200; J1644; J1650; J1815; J1940; J2250; J2470; J2704; J2919; J3010; J3375; J7512; J7620; J7626; P9047; Q9967